=== PATIENT | male | born 1955 | race Caucasian/White ===

== ENCOUNTER 2022-07-21 05:43 | Inpatient (IN) | payer MEDICARE, SELFPAY ==
[2022-07-18 13:44] VITALS: BMI 31.5
[2022-07-21] VITALS (22 sets, daily range): BP systolic 142–203; BP diastolic 73–158; PULSE 55–73; RESP 9–18; TEMP 36.3–36.8; O2SAT 94–99; BMI 31.5
[2022-07-21] MEDS: LACTATED RINGERS 1,000 ML 84 ML IV ×3 (07:28→11:07)
--- NOTE | 2022-07-21 07:44 | PM.PREOP ---
Pre-operative Note COVID-19 COVID-19 status: Not tested Criteria for continued procedure: Expected advancement of disease process, Possibility delay results in more complex future surgery or treatment, Increased loss of function, Continuing or worsening of significant or severe pain, Deterioration of the patient's condition or overall health and Delay expected to result in less-positive ultimate med/surg outcome Interval Note History & Physical reviewed/Exam performed by Physician: Yes Changes to H&P: No
[2022-07-21] MEDS: CEFAZOLIN 2 GM/100 ML PREMIX 100 ML IV ×3 (08:15→20:30)
[2022-07-21] MEDS: BUPIVACAINE 0.25% (PF) 30 ML, EPINEPHrine 0.15 MG INJ (09:08)
--- NOTE | 2022-07-21 09:22 | SUR.OPER ---
Prone on spine table, head in foam head support, padded chest and pelvic supports, gel pad at knees, lower legs supported by pillows; nipples, genitalia and toes free of pressure, arms secured on foam padded arm boards at <90 degrees abduction. Tape over blanket at thigh secured to table.
--- NOTE | 2022-07-21 10:31 | DI.RAD.S_ITS ---
PROCEDURE: XR LUMBAR SPINE 2-3V INDICATIONS: L2-3, L3-4, L4-5 TLIF TECHNIQUE: 2 views of the lumbar spine were acquired. COMPARISON: None. FINDINGS: Fluoroscopic guidance utilized for a posterior and interbody surgical fusion of L2 through L5. No hardware complication. IMPRESSION: Fluoroscopic guidance. Dictated by: Dallas Olivas M.D. on 07/21/2022 at 13:44 Approved by: Dallas Olivas M.D. on 07/21/2022 at 13:44
[2022-07-21] MEDS: BUPIVACAINE LIPOSOME 266 MG/20 ML VIAL INJ (12:50)
--- NOTE | 2022-07-21 12:59 | P.OP_ITS ---
Operative Date/Time/Diagnoses Date of procedure: 07/21/22 Time of procedure: 07:40 Pre-op diagnosis: 1. L2-3, L3-4, L4-5 spinal stenosis with neurogenic claudication 2. Lumbar scoliosis 3. Epidural lipomatosis Post-op diagnosis: same Procedure & Clinicians Procedure: 1. L2-3, L3-4, L4-5 Postero-lateral and posterior interbody fusion 2. L2-3, L3-4, L4-5 interbody cage placement. 3. L2-3, L3-4, L4-5 decompressive laminectomy with bilateral facetecomies 4. L2-3, L3-4, L4-5 Posterior segmental instrumentation 5. [place] of bone marrow from iliac crest 6. Utilization of microsurgical technique and operating microscope' 7. Utilization of robotic assisted navigation Same procedure as scheduled: Yes Indications: Patient has been having chronic back pain and worsening lumbar radiculopathy and symptoms of neurogenic claudication. Patient failed multiple conservative management with worsening pain weakness and numbness in his lower extremity. Patient has been having difficulty performing activity of daily living. After discussing risks benefits of treatment options, patient elected proceed with surgery. Surgeon: Hero Olguin Service Secretary: Hal Noriega Click Yes if Unassisted: No Anesthesia Type: General Operative Notes Closure Type: primary Specimen(s): none sent Prosthetic devices, grafts, tissues, transplants, or devices: Globus CREO MIS screws, Rise cages Applied: catheter Estimated Blood Loss (mL): 250 Blood products transfused: none Procedure in detail: Patient was seen in the preoperative area. Risks and benefits of the surgery was discussed with the patient. Informed consent was obtained from the patient and placed in the chart. Surgical site was marked. Patient was taken to the operative room. General anesthesia was administered. Prophylactic antibiotic was given to the patient less than 30 min before the incision was made. Patient was placed into a prone position on the Omid table. Patient's back was then prepped and draped in the sterile fashion. Time-out was performed at this time. After patient was prepped and draped, patient's PSIS was palpated and marked bilaterally. Small 1 cm incision was made over the PSIS for placement of the reference probes. Two trocar was placed into the PSIS one on each side. The reference probe was attached to the trocar of the reference apparatus. At this time the C-arm imaging was used to confirm AP and lateral of L2, L3, L4, L5 vertebrae and merged the C-arm imaging using the [employer] robotic navigation system with the CT of the lumbar spine. After successful merging was completed and confirmed, skin marker was used to svitlana out the skin incision using the [employer] robotic arm. Bilateral incision was made at this time. Pre templated trajectory was used and guided using the [employer] robotic navigation system for bilateral L2 L3, L4, L5 pedicle screw placement. This was done by using the robotic arm to guide the high-speed bur to make a cortical entry point. Next a drill was placed also using the robotic arm and guided using the navigation system drilling partially through bilateral L2, L3, L4, L5 pedicles. Next L2, L3, L4, L5 pedicle screws it was pre templated and measured was placed onto the power warehouse delivery driver and inserted into the pedicles bilaterally. After all 6 screws were placed C-arm imaging was taken of both AP and lateral to confirm the placement. Excellent placement of the screws were confirmed and a matched precisely with the pre planned screw placement using the navigation system. MARs retractor was inserted using [employer] guidence. Globus MARS retractors was placed inside the incision and docked onto the L2, L3, L4 lamina. Using microsurgical technique and operating microscope, a L2, L3, L4 laminectomy and L2-3, L3-4, L4-5 facetectomy was performed using a [place] r ongeur. The laminectomy and facetectomy was performed in order to decompress patient's cauda equina as well as the nerve roots exiting at the L2-3, L3-4, L4- 5 level. Patient was found have severe lateral recess and neural foramen stenosis which was fully decompressed after the laminectomy facetectomy. Patient was also found to significant amount of epidural lipomatosis at all 3 levels in the epidural space. The lipomas were carefully resected along with hypertrophy ligamentum to further decompress the epidural space. More than 75% of the facets were removed during the process of decompression rendering L2-3, L3-4, L4-5 level grossly unstable and required a fusion procedure at the same time. The disc space at L2-3, L3-4, L4-5 was identified, and a total diskectomy was performed at L2-3, L3-4, L4-5 level. The endplates were decorticated using a rasp and shaver. The total diskectomy and decortication was performed at L2-3, L3-4, L4-5 level in order to to accomplish a L2-3, L3-4, L4-5 fusion. The local bone from the laminectomy and facetectomy was saved for local bone grafting. After the total diskectomy and decortication was completed, Trifecta bone graft material was combined with local bone that was harvested earlier. At this time, a separate skin is incision was made over the iliac crest. A Jamshidi needle was inserted into the iliac crest through a separate skin in cision. 5 cc of bone marrow aspiration was obtained through the separate skin incision using a Jamshidi needle from the iliac crest. The bone marrow aspiration was combined with local bone and the Trifecta bone grafting material. The bone grafting material was placed into the L2-3, L3-4, L4-5 interbody space along with expandable cages. One cage each was inserted into the L2-3 L3-4 L4-5 interbody space along with bone graft material. The cage was expanded to its maximum height using the torque limiting screwdriver. The disc preparation as well as the cage insertion were also performed under navigation guidance. After the cage was placed, AP and lateral C-arm imaging was taken to confirm placement of the cage and excellent position was confirmed. Globus MARS retractor was inserted and docked onto the L2-3, L3-4 L4-5 posterolateral gutter on the right side. Using the power drill, posterior- lateral decortication was performed at L2-3, L3-4 L4-5 level until bleeding cortical bone was identified. The remaining bone grafting material was placed into the L2-3, L3-4 L4-5 posterior lateral gutter he order to accomplish posterolateral fusion at the L2-3, L3-4, L4-5 level. At this time the tulips were attached to the L2, L3, L4, L5 pedicle screw shanks. After measuring the length of the rods, they were inserted into the tulips of the pedicle screws and locked in place using locking caps and torque limiting screwdriver bilaterally. Total 6 caps and 2 titanium rods was used in order to complete the posterior instrumentation construct. After all the hardware was placed, and confirmed with AP and lateral C-arm imaging, the wound was then irrigated with sterile normal saline and packed with Ray-Maegan gauze for 3 min to accomplish hemostasis. After the gauze was removed the deep fascia was closed with #1 Vicryl suture. The subcutaneous layer was closed with 2-0 Vicryl. The skin was closed with skin kori. Patient tolerated the procedure well. There were no complications. Neuro monitoring system was used to monitor patient's neurologic status throughout entire procedure. There was no disturbance of the neural monitoring signals throughout the case. Complications: none Post-operative Condition: stable Disposition: PACU Plan for aftercare: Admit to inpatient hospital
[2022-07-21] MEDS: hydrOXYzine pamoate 25 MG CAPSULE 50 MG PO (13:33)
[2022-07-21] MEDS: OXYCODONE IR 5 MG TABLET PO (13:33)
[2022-07-21] MEDS: LABETALOL 20 MG/4 ML SYRINGE 10 MG IV (14:04)
[2022-07-21] MEDS: HYDROMORPHONE 2 MG INJ IV (14:11)
[2022-07-21] MEDS: HYDRALAZINE 20 MG/ML VIAL 10 MG IV (14:30)
--- NOTE | 2022-07-21 15:09 | OT.IPNOTE ---
Attempted to see pt for OT services. Per nursing aid, pt is nauseated and in a lot of pain at this time. Will hold and continue to follow.
[2022-07-21] MEDS: HYDROMORPHONE 0.5 MG INJ IV ×3 (15:11→23:46)
[2022-07-21] MEDS: ACETAMINOPHEN 325 MG TABLET 650 MG PO (15:11)
[2022-07-21] MEDS: LACTATED RINGERS 1,000 ML 125 ML IV ×2 (15:13→23:47)
[2022-07-21] MEDS: OXYCODONE IR 10 MG TABLET PO ×2 (16:32→18:57)
--- NOTE | 2022-07-21 16:47 | PT.IIE ---
Current Diagnoses Spondylolisthesis, lumbar region (07/21/22) Spinal stenosis, lumbar region with neurogenic claudication (07/21/22) Surgery Performed Operation Date: 07/21/22 07:45 Actual Procedures p L2-3, L3-4, L4-5 TLIF w. posterior instrumentation -Robot - Hero Olguin MD Surgical History (Last Updated 07/12/22 @ 10:59 by Shantelle Hassan, RN) History of arthroscopy of both knees History of surgery Hx of umbilical hernia repair S/P epidural steroid injection Medical History (Last Updated 07/18/22 @ 14:22 by Shantelle Hassan RN) Arthritis Bipolar disorder Complex posttraumatic stress disorder Depression Dislocation of right shoulder joint DJD (degenerative joint disease) Drug abuse HLD (hyperlipidemia) HTN (hypertension) Left rotator cuff tear Major depressive disorder OCD (obsessive compulsive disorder) Osteoporosis [place] syndrome PTSD (post-traumatic stress disorder) Right rotator cuff tear Spinal stenosis Thyroid disease Physical Therapy Inpatient Evaluation/Re-Eval M1 PT/OT-IP Prior Functional Status Start: 07/21/22 16:34 Freq: NEEDED Status: Active Protocol: Document 07/21/22 16:34 ES (Rec: 07/21/22 16:47 ES [id number]) Medical Review Prior Functional Status Medical History Reviewed Yes Diet/Fluid Consistency Regular Communication Indep Mobility and Gait Indep with use of cane outdoors Activities of Daily Living and IADL's Indep Prior Functional Level (Other details) Has been sleeping in his recliner. Social History Household Members none Living Arrangements Apartment/Condo Number of Floors (Floors) One Floor Number of Stairs To Enter/Railing? 17 SHAUNA with B rails Home Environment Standard Height Toilet,Tub/ Shower Home Equipment Straight Cane,Shower Seat with Backrest Additional Social History Comment Patient stated he purchased an 18 tall inflatable mattress to sleep on. States he does not have anyone who will be helping him out at home. Has a freezer full of frozen dinners. M2 PT-IP Current Condition Start: 07/21/22 16:34 Freq: NEEDED Status: Active Protocol: Document 07/21/22 16:34 ES (Rec: 07/21/22 16:47 ES [id number]) Physical Therapy Current Condition Current Condition Evaluation Date 07/21/22 Treatment Diagnosis S/p L2-3, L3-4, L4-5 TLIF Onset Date 07/21/22 M3 PT-IP Subjective Start: 07/21/22 16:34 Freq: NEEDED Status: Active Protocol: Document 07/21/22 16:34 ES (Rec: 07/21/22 16:47 ES [id number]) Subjective Physical Therapy Visit Type Type Initial Evaluation Visit Start Time 15:55 Visit Stop Time 16:32 Total Visit Minutes 37 Physical Therapy Visit Comments Patient Comments Patient reported feeling very uncomfortable in the hospital bed. Is not used to being in a bed as he has been sleeping in his recliner for several weeks leading up to surgery due to his back pain. Would like to get up with therapy. Therapy Pain Assessment Pain When Pain Assessed At Rest Pain Present Pain Present Pain Reported Location Lower Back Intensity 9 Scale Used Numeric (0 - 10) Pain Management Techniques Apply Cold,Distraction,Re- positioning M4 PT-IP Mobility and Gait Start: 07/21/22 16:34 Freq: NEEDED Status: Active Protocol: Document 07/21/22 16:34 ES (Rec: 07/21/22 16:47 ES [id number]) PT-Bed Mobility Assessment Rolling Type of Rolling Log Rolling Level of Assist Minimal Assistance Supine to Sit Supine to Sit Minimal Assistance,Head of Bed Elevated,Bedrails Sit to Supine Sit to Supine Minimal Assistance,Head of Bed Elevated,Bedrails Scooting Scooting to Edge of Bed Minimal Assistance Scooting Up and Down in Bed Maximum Assistance PT-Transfer Assessment Sit to and From Stand Sit to and from Stand Contact Guard Assistance,Use of Upper Extremities Equipment Transfer Assistive Device Gait Belt,Front Wheeled Walker Comments Mobility Comments Patient stood at EOB with FWW x2 minutes with CGA. Attempted to take side steps toward HOB before sitting but unable to weight shift enough to take a step. PT-Balance Assessment Sitting Balance and Reactions Static Sitting Balance Ability Good Dynamic Sitting Balance Ability Good Standing Balance and Reactions Static Standing Balance Ability Good Dynamic Standing Balance Ability Fair Device Used FWW Balance Tests Single Limb Standing Unable M5 PT-IP Objective Assessments Start: 07/21/22 16:34 Freq: NEEDED Status: Active Protocol: Document 07/21/22 16:34 ES (Rec: 07/21/22 16:47 ES [id number]) Orientation Orientation/Cognition Level of Alertness Alert Orientation Name,Age,Birthday,Month,Date, Year,Day of Week,Place, Situation Language Function Ability No Deficits Noted Safety Awareness Decreased Safety Awareness Memory Description No Deficits Noted Gross Range of Motion Upper Extremity ROM Assessment Within Functional Limits Lower Extremity ROM Assessment Within Functional Limits Strength Upper Extremity Strength Assessment Within Functional Limits Lower Extremity Strength Assessment Within Functional Limits M6 PT-IP Treatment Start: 07/21/22 16:34 Freq: NEEDED Status: Active Protocol: Document 07/21/22 16:34 ES (Rec: 07/21/22 16:47 ES [id number]) Physical Therapy Treatment Education Education Provided Precautions,Weight Bearing Status,Post-Op Packet,Safety M7 PT-IP Assessment and Plan Start: 07/21/22 16:34 Freq: NEEDED Status: Active Protocol: Document 07/21/22 16:34 ES (Rec: 07/21/22 16:47 ES [id number]) PT Summary Assessment and Plan Potential Rehabilitation Potential Good Status of Condition at Evaluation Evolving Summary Impairments Pain,Balance,Bed Mobility, Transfers,Gait,Activity Tolerance Assessment Summary Patient is a 67 year old male POD #0 s/p L2-5 TLIF. He reported high levels of pain but requested to get up to EOB as the bed was uncomfortable. He required cues for log roll technique, and required min A to complete. He stood with CGA with FWW but unable to take steps due to pain wtih weight shifting on LE's. He will benefit from skilled therapy to progress his mobility in order to increase independence with functional activity while maintaining lumbar precautions. He will likely need a FWW for safety with ambulation. Goals Bed Mobility Goal Independent Transfer Goal Independent Gait Goal Independent,Cane,Front Wheel Walker Gait Distance 100 Other Goals Patient will be able to ascend /descend 17 stairs with single rail and LRAD independently. Patient will demonstrate good understanding of lumbar precautions. Days to Meet Goals 5 Frequency of Treatment Frequency Of Treatment Twice a Day Treatment Plan Physical Therapy Treatment Plan Bed Mobility Training,Transfer Training,Gait Training, Therapeutic Exercise,Post Op Education,Discharge Planning, Hot or Cold Pack Precautions Lumbar Precautions Log Roll,No Twisting,Limit Bending,Lifting Restriction of 10 lbs,Gait Belt above Incisional Area Recommendations To Nursing Amount of Assist Needed 1 Person Assist Discharge Recommendations PT Discharge Recommendations Home,Home Health Other Discharge Recommendations HHPT depending on progress Equipment Needed for Home Before FWW Discharge Transportation Needs at Discharge Private Vehicle
[2022-07-21] MEDS: hydrOXYzine pamoate 25 MG CAPSULE PO (21:09)
[2022-07-21] MEDS: ATORVASTATIN 20 MG TABLET 10 MG PO (21:10)
[2022-07-21] MEDS: TRAZODONE 50 MG TABLET 100 MG PO (21:10)
[2022-07-21] MEDS: DOCUSATE 100 MG CAPSULE PO (21:10)
[2022-07-21] MEDS: SENNOSIDES 8.6 MG TABLET 17.2 MG PO (21:10)
[2022-07-22] MEDS: ONDANSETRON 4 MG/2 ML INJ IV (00:22)
[2022-07-22] MEDS: CEFAZOLIN 2 GM/100 ML PREMIX 100 ML IV (03:07)
[2022-07-22 03:41] VITALS: BP 149/85; PULSE 73; RESP 18; TEMP 36.9; O2SAT 97
[2022-07-22] MEDS: HYDROMORPHONE 0.5 MG INJ IV ×6 (03:41→23:58)
[2022-07-22 06:10] LABS: Hematocrit 35.4 % (41-53)
[2022-07-22] MEDS: LEVOTHYROXINE 75 MCG TABLET PO (06:51)
[2022-07-22] MEDS: LEVOTHYROXINE 100 MCG TABLET PO (06:51)
[2022-07-22] MEDS: LACTATED RINGERS 1,000 ML 125 ML IV ×2 (08:15→16:03)
[2022-07-22 08:16] VITALS: BP 126/70; PULSE 65
[2022-07-22] MEDS: METOPROLOL ER 50 MG TABLET 150 MG PO (08:16)
[2022-07-22 08:17] VITALS: BP 126/70; PULSE 65
[2022-07-22] MEDS: lisinopriL 20 MG TABLET 40 MG PO (08:17)
[2022-07-22] MEDS: DOCUSATE 100 MG CAPSULE PO ×2 (08:17→20:02)
[2022-07-22] MEDS: OXYCODONE IR 10 MG TABLET PO ×5 (08:17→23:32)
[2022-07-22] MEDS: TRIAMTERENE/HCTZ 37.5/25 CAPSULE 1 CAP PO (08:17)
[2022-07-22] MEDS: AMLODIPINE 5 MG TABLET PO (08:17)
--- NOTE | 2022-07-22 08:55 | PT.IPTN ---
Current Diagnoses Spondylolisthesis, lumbar region (07/21/22) Spinal stenosis, lumbar region with neurogenic claudication (07/21/22) Surgery Performed Operation Date: 07/21/22 07:45 Actual Procedures p L2-3, L3-4, L4-5 TLIF w. posterior instrumentation -Robot - Hero Olguin MD Physical Therapy Treatment Note M2 PT-IP Current Condition Start: 07/21/22 16:34 Freq: NEEDED Status: Active Protocol: Document 07/21/22 16:34 ES (Rec: 07/21/22 16:47 ES [id number]) Physical Therapy Current Condition Current Condition Evaluation Date 07/21/22 Treatment Diagnosis S/p L2-3, L3-4, L4-5 TLIF Onset Date 07/21/22 M3 PT-IP Subjective Start: 07/21/22 16:34 Freq: NEEDED Status: Active Protocol: Document 07/22/22 09:10 TS (Rec: 07/22/22 09:40 TS [id number]) Subjective Physical Therapy Visit Type Type Treatment Note Visit Start Time 08:55 Visit Stop Time 09:10 Total Visit Minutes 15 Number of HISTOPATH TECH Visits 1 Physical Therapy Visit Comments Patient Comments Pt reports pain 5/10 at rest, increases with movement, agreeable to PT. Therapy Pain Assessment Pain When Pain Assessed At Rest Pain Present Pain Present Pain Reported Location Lower Back Intensity 5 Scale Used Numeric (0 - 10) Pain Behaviors Calling Out,Facial Grimacing, Moaning,Restlessness,Wincing Pain Management Techniques Apply Cold,Distraction,Re- positioning M4 PT-IP Mobility and Gait Start: 07/21/22 16:34 Freq: NEEDED Status: Active Protocol: Document 07/22/22 09:10 TS (Rec: 07/22/22 09:40 TS [id number]) PT-Bed Mobility Assessment Rolling Type of Rolling Log Rolling Level of Assist Minimal Assistance Supine to Sit Supine to Sit Moderate Assistance,1 Person Assistance,Head of Bed Elevated Sit to Supine Sit to Supine Moderate Assistance,Head of Bed Elevated,Bedrails Scooting Scooting to Edge of Bed Contact Guard Assistance Scooting Up and Down in Bed Maximum Assistance PT-Transfer Assessment Sit to and From Stand Sit to and from Stand Contact Guard Assistance Equipment Transfer Assistive Device Gait Belt,Front Wheeled Walker Comments Mobility Comments Supine to sit with HOB elevated ModA for uprighting trunk and LEs off EOB, pt impulsive to move due to pain. Sit to stand with FWW CGA with BUEsupport on FWW. Pt ambulated to wall ~5' and back to bed, reports increasing pain and wanting to lay bakc in bed. Sit to supine ModA for LEs pt impulsive to lay down before therapist was ready due to pain. MaxA x2 for scooting to HOB, pt was left in bed with call light nearby, RN notified. Gait Assessment Gait Gait Assistance Required: Contact Guard Assist Distance (Feet) 10 Able to Maintain Weight Bearing Status Yes During Gait Assistive Devices Assistive Device Gait Belt,Front Wheeled Walker Orthotic/Prosthetic Devices or Brace: No Gait Deviations General Gait Pattern Decreased Stride Length, Decreased Feet Clearance,Step- to Gait Factors Limiting Gait Function Factors Limiting Gait Function Decreased Activity Tolerance, Decreased Strength,Difficulty Following Directions,Limited Range of Motion,Pain,Poor Balance,Poor Safety Awareness Comments Gait Comments See mobility comments. Stair Climbing Assessment Comments Stair Climbing Comments Unable at this time. PT-Balance Assessment Sitting Balance and Reactions Static Sitting Balance Ability Good Dynamic Sitting Balance Ability Fair Standing Balance and Reactions Static Standing Balance Ability Good Dynamic Standing Balance Ability Fair Device Used FWW M5 PT-IP Objective Assessments Start: 07/21/22 16:34 Freq: NEEDED Status: Active Protocol: Document 07/21/22 16:34 ES (Rec: 07/21/22 16:47 ES [id number]) Orientation Orientation/Cognition Level of Alertness Alert Orientation Name,Age,Birthday,Month,Date, Year,Day of Week,Place, Situation Language Function Ability No Deficits Noted Safety Awareness Decreased Safety Awareness Memory Description No Deficits Noted Gross Range of Motion Upper Extremity ROM Assessment Within Functional Limits Lower Extremity ROM Assessment Within Functional Limits Strength Upper Extremity Strength Assessment Within Functional Limits Lower Extremity Strength Assessment Within Functional Limits M6 PT-IP Treatment Start: 07/21/22 16:34 Freq: NEEDED Status: Active Protocol: Document 07/22/22 09:10 TS (Rec: 07/22/22 09:40 TS [id number]) Physical Therapy Treatment Education Education Provided Precautions,Weight Bearing Status,Post-Op Packet,Safety M7 PT-IP Assessment and Plan Start: 07/21/22 16:34 Freq: NEEDED Status: Active Protocol: Document 07/22/22 09:10 TS (Rec: 07/22/22 09:40 TS [id number]) PT Summary Assessment and Plan Potential Rehabilitation Potential Good Summary Impairments Pain,Balance,Bed Mobility, Transfers,Gait,Activity Tolerance Progress Towards Goals Slow Progress due to Pain,Slow Progress due to Activity Tolerance Assessment Summary Pt is making slow progress with his mobility due to pain. He requires Max cueing for logroll Bri and and supine sit with ModA. He performed sit to stand x1 CGA with FWW with BUE support. He progressed heis ambulation to ~10' CGA with FWW, pt reports increasing pain and required to sit back to bed. Pt becomes very agitated sitting EOB and impulsively lays down due to pain. PT is recommending SNF rehab at this time to progress bed mobility, transfers, gait and activity tolerance. Pt does not have any support at home and will need to perform 17 stairs to get in his house. Goals Bed Mobility Goal Independent Transfer Goal Independent Gait Goal Independent,Cane,Front Wheel Walker Gait Distance 100 Other Goals Patient will be able to ascend /descend 17 stairs with single rail and LRAD independently. Patient will demonstrate good understanding of lumbar precautions. Days to Meet Goals 5 Frequency of Treatment Frequency Of Treatment Twice a Day Treatment Plan Physical Therapy Treatment Plan Bed Mobility Training,Transfer Training,Gait Training, Therapeutic Exercise,Post Op Education,Discharge Planning, Hot or Cold Pack Precautions Lumbar Precautions Log Roll,No Twisting,Limit Bending,Lifting Restriction of 10 lbs,Gait Belt above Incisional Area Recommendations To Nursing Amount of Assist Needed 1 Person Assist Discharge Recommendations PT Discharge Recommendations SNF Rehab Transportation Needs at Discharge Wheelchair/Cabulance
[2022-07-22 09:00] VITALS: BP 126/70; PULSE 65; RESP 17; TEMP 36.9; O2SAT 99
--- NOTE | 2022-07-22 10:38 | CM.DANOTE ---
Initial Discharge Assessment Note: Case reviewed and met with patient. Introduced self and role. Payer: Medicare and Medicaid (*notes state is inactive 6.2.23-?) PCP: Bijal Pro 67 year old male [facility] [place] admit for lumbar TLIF which he underwent yesterday. POD #1 Patient lives in [place] alone in an apartment. He walks with a cane and is independent in ADLs and drives. He has 17 steps to his second floor apartment. He states he has no one who is able to help him. His neighbor brought him to the hospital for surgery. 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 PT notes yesterday states Home with HH, however today, the HOUSING COUNSELOR Massimo states he will need SNF rehab due to only able to take 3 steps today. Patient in agreement and wants SNF Rehab. He prefers one closest to him which would be [facility]. Called and spoke with Carlene, they will have rehab beds available on Monday 07/24. (He will need 3 midnights). Faxed Referral. PLAN: When medically cleared, discharge to [facility]. J Discharge Planning/Care Management CM Discharge Assessment Start: 07/22/22 10:32 Freq: Status: Active Protocol: Document 07/22/22 10:32 (Rec: 07/22/22 10:37 [id number]) Discharge Planning Assessment Assigned Alteration Manager Flaquita Leung RN/DCP Advance Directives? No History Provided By Patient Prior Living Arrangements Apartment/Condo Household Members none Independent with ADL's Yes Is patient alert and oriented? Yes Caregiver for Another No Referrals Initiated Correction Additional Comment Therapy notes yesterday said DC plan Home with HH. However, HOUSING COUNSELOR this morning says patient will need SNF Rehab. Patient also agrees with this. He lives in [place] and wants the closest to there he states . Review Status In Process Next Review Type Continued Stay Review Pre-Anesthesia Assessment Start: 07/12/22 10:42 Freq: Status: Active Protocol: Document 07/18/22 13:44 CAB (Rec: 07/12/22 11:14 CAB [id number]) Pre-Anesthesia Assessment PAC Comment Has been off majority of meds approx 10 days due to issue with changing pharmacy, has only been taking levothyroxine daily Preferred Name [facility] Patient Information Reviewed Via Phone Assessment Assessment Completed With Patient Diagnostic Results BMP/CMP,CBC,EKG Comment Outside labs/EKG scanne Primary Care Provider Bijal Pro Seen Specialist in Last 12 Months Yes Specialist Seen Orthopedist Primary Language Swazi Pipe Crew Foreman Required No Height 177.8 cm Weight 99.79 kg Body Mass Index (BMI) 31.5 Hearing Ability Normal Visual Assist Magnifying Glass Dentition Type Full- Upper & Lower Barriers to Learning None Hx Anesthesia Reactions No Hx Family Anesthesia Reaction No Hx Malignant Hyperthermia No Hx Blood Transfusions No Anesthesia Review Requested No Geriatric Nurse Practitioner Yes: Pt does not have assist @ DC, 17 steps up to apartment alcohol intake current alcohol intake frequency a few times a week Smoking Status Former smoker how long ago did patient quit smoking 1986 Substance Use Type former substance user, marijuana Comment Advised not to smoke marijuana 24 hours prior to surgery Pain Present Pain Reported Musculoskeletal Symptoms Abnormal Gait,Back Pain, Difficulty Walking,Numbness, Radiating Pain into Limb History of Falling (Recent or History of No ) Patient is completely paralyzed or No completely immobile Prosthesis or Orthotic Device Cane Mental Status Oriented to own ability Is patient on oxygen? No Does patient have MARTINEZ/SOB Yes Hx Sleep Apnea No Currently Taking a Beta Katie No Can You Climb a Flight of Stairs Without No SOB Hx Chest Pain No Hx SOB Yes Hx Syncope or Dizziness No Anti-Coagulant Therapy No Has a Slot Floorperson No Cardiac Testing No Hx Pacemaker/ICD No Pacemaker Rep Required? No Cardiac Clearance Received Not Applicable Diet Type At Home Regular Dysphagia No Gastrointestinal Symptoms None Genitourinary Symptoms Change in Urinary Stream Chronic UTI No Bladder Pattern Frequency Urinary Catheter Present No Hx Urinary Self Catheterization No Diabetes No HgbA1C 5.8 Date 07/07/22 Hx Drug Resistant Organism No Presence of External or Internal Medical No Devices Have you had any close contact with No someone diagnosed with COVID-19? Received a COVID vaccine? Yes Received all doses? Yes Marital Status Single Lives With none Current Living Arrangements Apartment/Condo Number of Floors (Floors) One Floor Number of Stairs To Enter/Railing? 17 Support System None Does the Patient Have Assistance After No Surgery Patient Discharge Plan Description Other Comment Pt advised 2-3 day length of stay per surgeon. Pt does not have any assist Feels Safe in Current Environment Yes Been Physically Hurt or Threatened By a No Person in Current Environment Do you have thoughts of harming yourself None or others? Are you currently considering suicide? No Do you have a plan to hurt yourself or No Plan others? Do You Have Any Spiritual Beliefs That No May Affect Your HC Choices? Do You Have Any Cultural Practices That No May Affect Your HC Choices? Who Can We Speak to About Patient's Care Family, friends Identifying Code for Release of Patient Declines to issue Information Health Care Proxy/Next of Kin Richard Palaciohitesh (good friend) Health Care Proxy Emergency Contact Name Richard Robles (good friend) Emergency Contact Advance Directives? No Power of Treasury Director No PAC Instructions Durable medical equipment, Medications to take/avoid, Nasal antibiotic,No ETOH/ petroleum product on skin DOS, NPO,Pre-surgical wash,Sensory aids,Sturdy shoes/comfortable clothes,Do not bring valuables and remove jewelry
--- NOTE | 2022-07-22 10:56 | P.PN_ITS ---
Subjective Subjective Date Patient Seen: 07/22/22 Time Patient Seen: 10:56 Interval history: Pain is moderate to severe. Denies fever or chills. No nausea or vomiting. Patient does live alone. Exam Vital Signs (past 8 hours): - 07/22/22 03:41 07/22/22 08:16 07/22/22 08:17 Temperature 98.5 F Pulse Rate 73 65 65 Respiratory Rate 18 Blood Pressure 149/85 H 126/70 126/70 Pulse Oximetry 97 Oxygen Flow Rate 07/22/22 09:00 Temperature 98.4 F Pulse Rate 65 Respiratory Rate 17 Blood Pressure 126/70 Pulse Oximetry 99 Oxygen Flow Rate 0 Oxygen Delivery Method Room Air Oxygen Flow Rate 0 Narrative Exam Narrative: 67-year-old male resting comfortably in bed in no apparent distress. Motor functions intact bilateral lower extremities. Sensation grossly intact to light touch bilateral lower extremities. Const General: cooperative and comfortable Nutritional Appearance: well nourished Orientation: alert Resp Effort & Inspection: normal respiratory effort and able to speak in complete sentences Objective Labs 07/22/22 04:55 Labs: Laboratory Results - last 24 hr 07/22/22 04:55 Hgb 12.0 L Hct 35.4 L PFSH Medical History Arthritis Bipolar disorder Complex posttraumatic stress disorder Depression Dislocation of right shoulder joint DJD (degenerative joint disease) Drug abuse HLD (hyperlipidemia) HTN (hypertension) Left rotator cuff tear Major depressive disorder OCD (obsessive compulsive disorder) Osteoporosis [place] syndrome PTSD (post-traumatic stress disorder) Right rotator cuff tear Spinal stenosis Thyroid disease Surgical History History of arthroscopy of both knees History of surgery Hx of umbilical hernia repair S/P epidural steroid injection Social History household members: none Smoking Status: Former smoker alcohol intake: current Assessment & Plan Post-op Postoperative Procedures: Procedures Operation Date: 07/21/22 07:45 Actual Procedure Side Surgeon p L2-3, L3-4, L4-5 TLIF w. posterior instrumentation -Robot Hero Olguin MD Postoperative day: 1 Postoperative status: doing well and marginal pain control Postoperative plan: routine post-op care Postoperative plan narrative: Mobilize with physical therapy, limit bending, twisting, lifting Multimodal pain management Disposition, likely home versus senior care facility in 1-2 days
--- NOTE | 2022-07-22 13:50 | PT.IPTN ---
Current Diagnoses Spondylolisthesis, lumbar region (07/21/22) Spinal stenosis, lumbar region with neurogenic claudication (07/21/22) Surgery Performed Operation Date: 07/21/22 07:45 Actual Procedures p L2-3, L3-4, L4-5 TLIF w. posterior instrumentation -Robot - Hero Olguin MD Physical Therapy Treatment Note M2 PT-IP Current Condition Start: 07/21/22 16:34 Freq: NEEDED Status: Active Protocol: Document 07/21/22 16:34 ES (Rec: 07/21/22 16:47 ES [id number]) Physical Therapy Current Condition Current Condition Evaluation Date 07/21/22 Treatment Diagnosis S/p L2-3, L3-4, L4-5 TLIF Onset Date 07/21/22 M3 PT-IP Subjective Start: 07/21/22 16:34 Freq: NEEDED Status: Active Protocol: Document 07/22/22 14:07 TS (Rec: 07/22/22 14:19 TS [id number]) Subjective Physical Therapy Visit Type Type Treatment Note Visit Start Time 13:50 Visit Stop Time 14:06 Total Visit Minutes 16 Number of EQUIPMENT TECH Visits 2 Physical Therapy Visit Comments Patient Comments Pt reports pain is 4/10 at rest, agreeable to PT. Therapy Pain Assessment Pain When Pain Assessed At Rest Pain Present Pain Present Pain Reported Location Lower Back Intensity 4 Scale Used Numeric (0 - 10) Pain Behaviors Calling Out,Facial Grimacing, Moaning,Restlessness,Wincing Pain Management Techniques Apply Cold,Distraction,Re- positioning M4 PT-IP Mobility and Gait Start: 07/21/22 16:34 Freq: NEEDED Status: Active Protocol: Document 07/22/22 14:07 TS (Rec: 07/22/22 14:19 TS [id number]) PT-Bed Mobility Assessment Rolling Type of Rolling Log Rolling Level of Assist Minimal Assistance Supine to Sit Supine to Sit Minimal Assistance,1 Person Assistance,Head of Bed Elevated Sit to Supine Sit to Supine Moderate Assistance,Head of Bed Elevated,Bedrails Scooting Scooting to Edge of Bed Contact Guard Assistance Scooting Up and Down in Bed Minimal Assistance PT-Transfer Assessment Sit to and From Stand Sit to and from Stand Contact Guard Assistance Equipment Transfer Assistive Device Gait Belt,Front Wheeled Walker Orthotic/Prosthetic Devices or Brace: No Comments Mobility Comments Pt found resting in bed, agreeable to PT. Logroll Bri provided cues for RLE heel push and reaching with RUE for handrail for roll to left. Supine to sit Bri for uprighting trunk, provided cues for LEs off EOB. Sit to stand CGA with FWW, cues for ue support pushing from bed. pt ambulated ~20' in room SBA, no buckling or LOB. sit to supine ModA for LEs into bed. Pt scooted to HOB provided cues for hip lift. Pt was left in bed with call light nearby , all needs met. Gait Assessment Gait Gait Assistance Required: Standby Assistance Distance (Feet) 20 Able to Maintain Weight Bearing Status Yes During Gait Assistive Devices Assistive Device Gait Belt,Front Wheeled Walker Orthotic/Prosthetic Devices or Brace: No Gait Deviations General Gait Pattern Decreased Stride Length, Decreased Feet Clearance,Step- to Gait Factors Limiting Gait Function Factors Limiting Gait Function Decreased Activity Tolerance, Decreased Strength,Difficulty Following Directions,Limited Range of Motion,Pain,Poor Balance,Poor Safety Awareness Comments Gait Comments See mobility comments. Stair Climbing Assessment Comments Stair Climbing Comments Unable at this time. PT-Balance Assessment Sitting Balance and Reactions Static Sitting Balance Ability Good Dynamic Sitting Balance Ability Fair Standing Balance and Reactions Static Standing Balance Ability Good Dynamic Standing Balance Ability Fair Device Used FWW M5 PT-IP Objective Assessments Start: 07/21/22 16:34 Freq: NEEDED Status: Active Protocol: Document 07/21/22 16:34 ES (Rec: 07/21/22 16:47 ES [id number]) Orientation Orientation/Cognition Level of Alertness Alert Orientation Name,Age,Birthday,Month,Date, Year,Day of Week,Place, Situation Language Function Ability No Deficits Noted Safety Awareness Decreased Safety Awareness Memory Description No Deficits Noted Gross Range of Motion Upper Extremity ROM Assessment Within Functional Limits Lower Extremity ROM Assessment Within Functional Limits Strength Upper Extremity Strength Assessment Within Functional Limits Lower Extremity Strength Assessment Within Functional Limits M6 PT-IP Treatment Start: 07/21/22 16:34 Freq: NEEDED Status: Active Protocol: Document 07/22/22 14:07 TS (Rec: 07/22/22 14:19 TS [id number]) Physical Therapy Treatment Education Education Provided Precautions,Weight Bearing Status,Post-Op Packet,Safety M7 PT-IP Assessment and Plan Start: 07/21/22 16:34 Freq: NEEDED Status: Active Protocol: Document 07/22/22 14:07 TS (Rec: 07/22/22 14:19 TS [id number]) PT Summary Assessment and Plan Potential Rehabilitation Potential Good Summary Impairments Pain,Balance,Bed Mobility, Transfers,Gait,Activity Tolerance Progress Towards Goals Progressing Toward Goals Assessment Summary Pt is making some progress with his mobility this session . He continues to require Max cueing for sequencing of bed mobility and sit to stands. He progressed his ambulation distance ~20' SBA with FWW, demonstrated some increased tolerance with gait. He continues to struggle with pain control limiting his mobility. Pt was less irritated and improved with following cues provided from therapist. PT continues to recommend SNF to progress all functional mobility and activity tolerance. Goals Bed Mobility Goal Independent Transfer Goal Independent Gait Goal Independent,Cane,Front Wheel Walker Gait Distance 100 Other Goals Patient will be able to ascend /descend 17 stairs with single rail and LRAD independently. Patient will demonstrate good understanding of lumbar precautions. Days to Meet Goals 5 Frequency of Treatment Frequency Of Treatment Twice a Day Treatment Plan Physical Therapy Treatment Plan Bed Mobility Training,Transfer Training,Gait Training, Therapeutic Exercise,Post Op Education,Discharge Planning, Hot or Cold Pack Precautions Lumbar Precautions Log Roll,No Twisting,Limit Bending,Lifting Restriction of 10 lbs,Gait Belt above Incisional Area Recommendations To Nursing Amount of Assist Needed 1 Person Assist,2 Person Assist Discharge Recommendations PT Discharge Recommendations SNF Rehab Transportation Needs at Discharge Wheelchair/Cabulance
[2022-07-22 15:44] VITALS: BP 155/68; PULSE 65; RESP 17; TEMP 36.7; O2SAT 99
[2022-07-22] MEDS: ACETAMINOPHEN 325 MG TABLET 650 MG PO ×2 (16:43→23:31)
[2022-07-22] MEDS: ATORVASTATIN 20 MG TABLET 10 MG PO (19:59)
[2022-07-22] MEDS: hydrOXYzine pamoate 25 MG CAPSULE PO ×2 (20:00→23:58)
[2022-07-22] MEDS: TRAZODONE 50 MG TABLET 100 MG PO (20:01)
[2022-07-22] MEDS: SENNOSIDES 8.6 MG TABLET 17.2 MG PO (20:01)
[2022-07-22] MEDS: CALCIUM CARBONATE 500 MG TAB PO ×2 (20:16→22:22)
[2022-07-22 20:32] VITALS: BP 166/83; PULSE 70; RESP 18; TEMP 36.6; O2SAT 99
[2022-07-23] VITALS (8 sets, daily range): BP systolic 120–175; BP diastolic 68–103; PULSE 59–80; RESP 16–20; TEMP 36.2–36.8; O2SAT 97–99
[2022-07-23] MEDS: hydrOXYzine pamoate 25 MG CAPSULE PO ×3 (04:31→18:34)
[2022-07-23] MEDS: OXYCODONE IR 10 MG TABLET PO ×4 (04:31→18:34)
[2022-07-23] MEDS: ACETAMINOPHEN 325 MG TABLET 650 MG PO ×2 (04:31→12:09)
[2022-07-23] MEDS: LEVOTHYROXINE 100 MCG TABLET PO (08:10)
[2022-07-23] MEDS: lisinopriL 20 MG TABLET 40 MG PO (08:11)
[2022-07-23] MEDS: LEVOTHYROXINE 75 MCG TABLET PO (08:11)
[2022-07-23] MEDS: AMLODIPINE 5 MG TABLET PO (08:11)
[2022-07-23] MEDS: DOCUSATE 100 MG CAPSULE PO ×2 (08:11→20:48)
[2022-07-23] MEDS: TRIAMTERENE/HCTZ 37.5/25 CAPSULE 1 CAP PO (08:12)
[2022-07-23] MEDS: METOPROLOL ER 50 MG TABLET 150 MG PO (08:12)
[2022-07-23] MEDS: HYDROMORPHONE 0.5 MG INJ IV ×3 (09:21→19:26)
--- NOTE | 2022-07-23 12:21 | PT.IPTN ---
Current Diagnoses Spondylolisthesis, lumbar region (07/21/22) Spinal stenosis, lumbar region with neurogenic claudication (07/21/22) Surgery Performed Operation Date: 07/21/22 07:45 Actual Procedures p L2-3, L3-4, L4-5 TLIF w. posterior instrumentation -Robot - Hero Olguin MD Physical Therapy Treatment Note M2 PT-IP Current Condition Start: 07/21/22 16:34 Freq: NEEDED Status: Active Protocol: Document 07/21/22 16:34 ES (Rec: 07/21/22 16:47 ES [id number]) Physical Therapy Current Condition Current Condition Evaluation Date 07/21/22 Treatment Diagnosis S/p L2-3, L3-4, L4-5 TLIF Onset Date 07/21/22 M3 PT-IP Subjective Start: 07/21/22 16:34 Freq: NEEDED Status: Active Protocol: Document 07/23/22 12:08 ES (Rec: 07/23/22 12:21 ES [id number]) Subjective Physical Therapy Visit Type Type Treatment Note Visit Start Time 10:19 Visit Stop Time 10:34 Total Visit Minutes 15 Number of TANK STAVE ASSEMBLER Visits 0 Physical Therapy Visit Comments Patient Comments Patient initially declined to participate in PT, but after encouragement and education about timing therapy with pain medication, patient agreed to get up. Therapy Pain Assessment Pain When Pain Assessed During Mobility Pain Present Pain Present Pain Reported Location Lower Back Scale Used Did not provide numeric Pain Behaviors Calling Out,Facial Grimacing, Moaning,Wincing Pain Management Techniques Apply Cold,Distraction,Re- positioning,Timing of Activity with Medications M4 PT-IP Mobility and Gait Start: 07/21/22 16:34 Freq: NEEDED Status: Active Protocol: Document 07/23/22 12:08 ES (Rec: 07/23/22 12:21 ES [id number]) PT-Bed Mobility Assessment Rolling Type of Rolling Log Rolling Level of Assist Standby Assistance Supine to Sit Supine to Sit Minimal Assistance,Bedrails Scooting Scooting to Edge of Bed Standby Assistance PT-Transfer Assessment Sit to and From Stand Sit to and from Stand Contact Guard Assistance,Use of Upper Extremities Equipment Transfer Assistive Device Gait Belt,Front Wheeled Walker Transfers Transfer Destination Chair Transfer Technique Ambulation Transfer Ability Level of Assist Contact Guard Assistance Comments Mobility Comments Performed supine to sit with HOB slightly elevated. Had poor tolerance to sitting upright at EOB due to pain. Instructed patient to sit on very edge of bed to reduce hip flexion and this was more tolerable. Cued patient for hand placement and upright posture during STS to reduce back pain. Ended session up in recliner with pillows behind back and LE's partially elevated. Gait Assessment Gait Gait Assistance Required: Contact Guard Assist Distance (Feet) 60 Assistive Devices Assistive Device Gait Belt,Front Wheeled Walker Gait Deviations General Gait Pattern Decreased Stride Length, Decreased Feet Clearance Factors Limiting Gait Function Factors Limiting Gait Function Decreased Strength,Pain Comments Gait Comments Initially had slow julianna, improved with further ambulation. Required encouragement from PT and CM to ambulate further in hallway . PT-Balance Assessment Sitting Balance and Reactions Static Sitting Balance Ability Fair Dynamic Sitting Balance Ability Fair Standing Balance and Reactions Static Standing Balance Ability Good Dynamic Standing Balance Ability Fair Device Used FWW Comments Other Balance Tests/Deviations/Treatment Decreased sitting balance due : to pain and trunk weakness. Required min/mod A to come to full upright after leaning back impulsively at EOB due to back pain. M5 PT-IP Objective Assessments Start: 07/21/22 16:34 Freq: NEEDED Status: Active Protocol: Document 07/21/22 16:34 ES (Rec: 07/21/22 16:47 ES [id number]) Orientation Orientation/Cognition Level of Alertness Alert Orientation Name,Age,Birthday,Month,Date, Year,Day of Week,Place, Situation Language Function Ability No Deficits Noted Safety Awareness Decreased Safety Awareness Memory Description No Deficits Noted Gross Range of Motion Upper Extremity ROM Assessment Within Functional Limits Lower Extremity ROM Assessment Within Functional Limits Strength Upper Extremity Strength Assessment Within Functional Limits Lower Extremity Strength Assessment Within Functional Limits M6 PT-IP Treatment Start: 07/21/22 16:34 Freq: NEEDED Status: Active Protocol: Document 07/23/22 12:08 ES (Rec: 07/23/22 12:21 ES [id number]) Physical Therapy Treatment Education Education Provided Precautions,Safety M7 PT-IP Assessment and Plan Start: 07/21/22 16:34 Freq: NEEDED Status: Active Protocol: Document 07/23/22 12:08 ES (Rec: 07/23/22 12:21 ES [id number]) PT Summary Assessment and Plan Summary Impairments Pain,Balance,Bed Mobility, Transfers,Gait,Activity Tolerance Progress Towards Goals Slow Progress due to Pain,Slow Progress due to Activity Tolerance Assessment Summary Patient is making slow progress, demonstrating increased independence with bed mobility, and increased ambulation distance/tolerance. He continues to be limited due to high levels of pain. He will benefit from further therapy to progress mobility to increase his independence. Continue to recommend subacute rehab to further restore his function back to baseline. Goals Bed Mobility Goal Independent Transfer Goal Independent Gait Goal Independent,Cane,Front Wheel Walker Gait Distance 100 Other Goals Patient will be able to ascend /descend 17 stairs with single rail and LRAD independently. Patient will demonstrate good understanding of lumbar precautions. Days to Meet Goals 5 Frequency of Treatment Frequency Of Treatment Twice a Day Treatment Plan Physical Therapy Treatment Plan Bed Mobility Training,Transfer Training,Gait Training, Therapeutic Exercise,Post Op Education,Discharge Planning, Hot or Cold Pack Other Recommendations and Next Treatment Increase time OOB, progress Focus ambulation, further education on precautions and sitting posture. Precautions Lumbar Precautions Log Roll,No Twisting,Limit Bending,Lifting Restriction of 10 lbs,Gait Belt above Incisional Area Recommendations To Nursing Amount of Assist Needed 1 Person Assist Discharge Recommendations PT Discharge Recommendations SNF Rehab Transportation Needs at Discharge Wheelchair/Cabulance
--- NOTE | 2022-07-23 14:02 | CM.DPNOTE ---
Discharge Planning Note: Patient did better with PT today and now sitting up in chair eating lunch. PT recommending SNF. Referral sent yesterday to [facility] and spoke with Carlene. She states they can accept Sunday. Plan: Discharge to [facility] when medically cleared. Flaquita Leung RN/DCP
--- NOTE | 2022-07-23 14:20 | PT.IPTN ---
Current Diagnoses Spondylolisthesis, lumbar region (07/21/22) Spinal stenosis, lumbar region with neurogenic claudication (07/21/22) Surgery Performed Operation Date: 07/21/22 07:45 Actual Procedures p L2-3, L3-4, L4-5 TLIF w. posterior instrumentation -Robot - Hero Olguin MD Physical Therapy Treatment Note M2 PT-IP Current Condition Start: 07/21/22 16:34 Freq: NEEDED Status: Active Protocol: Document 07/21/22 16:34 ES (Rec: 07/21/22 16:47 ES [id number]) Physical Therapy Current Condition Current Condition Evaluation Date 07/21/22 Treatment Diagnosis S/p L2-3, L3-4, L4-5 TLIF Onset Date 07/21/22 M3 PT-IP Subjective Start: 07/21/22 16:34 Freq: NEEDED Status: Active Protocol: Document 07/23/22 13:55 KS (Rec: 07/23/22 14:57 KS [id number]) Subjective Physical Therapy Visit Type Type Treatment Note Visit Start Time 13:55 Visit Stop Time 14:20 Total Visit Minutes 25 Number of 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 Visits 1 Physical Therapy Visit Comments Patient Comments Pt agreeable to work w/ therapy, reports 2/10 pn following recent medication Therapy Pain Assessment Pain When Pain Assessed During Mobility Pain Present Pain Present Pain Reported Location Lower Back Intensity 2 Scale Used Numeric (0 - 10) Pain Behaviors Guarding Pain Management Techniques Re-positioning,Timing of Activity with Medications M4 PT-IP Mobility and Gait Start: 07/21/22 16:34 Freq: NEEDED Status: Active Protocol: Document 07/23/22 13:55 KS (Rec: 07/23/22 14:57 KS [id number]) PT-Bed Mobility Assessment Scooting Scooting to Edge of Bed Standby Assistance PT-Transfer Assessment Sit to and From Stand Sit to and from Stand Contact Guard Assistance,Use of Upper Extremities Equipment Transfer Assistive Device Gait Belt,Front Wheeled Walker Transfers Transfer Destination Chair Transfer Technique Ambulation Transfer Ability Level of Assist Contact Guard Assistance Comments Mobility Comments Pt in chair upon arrival, agreeable to ambulate. CGA and cues for sit<>Stand w/ FWW. Pt ambulated ~80 ft in hallway w/ FWW CGA. Upon return to chair he completed additional stand and marching in place. Pt left in chair w/ all needs in reach. Gait Assessment Gait Gait Assistance Required: Contact Guard Assist Distance (Feet) 80 Assistive Devices Assistive Device Gait Belt,Front Wheeled Walker Gait Deviations General Gait Pattern Decreased Stride Length, Decreased Feet Clearance Factors Limiting Gait Function Factors Limiting Gait Function Decreased Strength,Pain Comments Gait Comments See mobility PT-Balance Assessment Sitting Balance and Reactions Static Sitting Balance Ability Good Dynamic Sitting Balance Ability Good Standing Balance and Reactions Static Standing Balance Ability Good Dynamic Standing Balance Ability Fair Device Used FWW M5 PT-IP Objective Assessments Start: 07/21/22 16:34 Freq: NEEDED Status: Active Protocol: Document 07/21/22 16:34 ES (Rec: 07/21/22 16:47 ES [id number]) Orientation Orientation/Cognition Level of Alertness Alert Orientation Name,Age,Birthday,Month,Date, Year,Day of Week,Place, Situation Language Function Ability No Deficits Noted Safety Awareness Decreased Safety Awareness Memory Description No Deficits Noted Gross Range of Motion Upper Extremity ROM Assessment Within Functional Limits Lower Extremity ROM Assessment Within Functional Limits Strength Upper Extremity Strength Assessment Within Functional Limits Lower Extremity Strength Assessment Within Functional Limits M6 PT-IP Treatment Start: 07/21/22 16:34 Freq: NEEDED Status: Active Protocol: Document 07/23/22 13:55 KS (Rec: 07/23/22 14:57 KS [id number]) Physical Therapy Treatment Education Education Provided Precautions,Safety M7 PT-IP Assessment and Plan Start: 07/21/22 16:34 Freq: NEEDED Status: Active Protocol: Document 07/23/22 13:55 KS (Rec: 07/23/22 14:57 KS [id number]) PT Summary Assessment and Plan Potential Rehabilitation Potential Good Summary Impairments Pain,Balance,Bed Mobility, Transfers,Gait,Activity Tolerance Progress Towards Goals Slow Progress due to Pain,Slow Progress due to Activity Tolerance Assessment Summary Pt continues to make progress and was able to increase ambulation distance. Unable to assess bed mobility or stair training this treatment. Pt has 17 stairs to enter his home which at this time is his main barrier to d/c home. He will benefit from SNF to improve strength and functional mobility. Goals Bed Mobility Goal Independent Transfer Goal Independent Gait Goal Independent,Cane,Front Wheel Walker Gait Distance 100 Other Goals Patient will be able to ascend /descend 17 stairs with single rail and LRAD independently. Patient will demonstrate good understanding of lumbar precautions. Days to Meet Goals 5 Frequency of Treatment Frequency Of Treatment Twice a Day Treatment Plan Physical Therapy Treatment Plan Bed Mobility Training,Transfer Training,Gait Training, Therapeutic Exercise,Post Op Education,Discharge Planning, Hot or Cold Pack Other Recommendations and Next Treatment Increase time OOB, progress Focus ambulation, further education on precautions and sitting posture. Precautions Lumbar Precautions Log Roll,No Twisting,Limit Bending,Lifting Restriction of 10 lbs,Gait Belt above Incisional Area Recommendations To Nursing Amount of Assist Needed 1 Person Assist Discharge Recommendations PT Discharge Recommendations SNF Rehab Transportation Needs at Discharge Wheelchair/Cabulance
--- NOTE | 2022-07-23 14:37 | PM.PN.1 ---
Subjective Subjective Date Patient Seen: 07/23/22 Time Patient Seen: 14:40 Interval history: Patient seen postoperative day 3 from ?L2-3, L3-4, L4-5 PLIF doing well went on pain meds however he is having significant pain when off of narcotics. He has been able to walk the [place]. Seen upright eating lunch talking in a conversive manner. He has not had any significant changes to his distal extremity numbness and tingling from before surgery. He has had no postoperative issues. Exam Vital Signs (past 8 hours): - 07/23/22 08:11 07/23/22 08:12 07/23/22 08:00 Temperature 98.0 F Pulse Rate 79 79 64 Respiratory Rate 18 Blood Pressure 175/103 H 175/103 H Pulse Oximetry 98 Oxygen Flow Rate 0 07/23/22 13:31 07/23/22 13:31 Temperature 97.2 F L Pulse Rate 80 Respiratory Rate 16 Blood Pressure 140/74 140/74 Pulse Oximetry 98 Oxygen Flow Rate 0 Oxygen Delivery Method Room Air Oxygen Flow Rate 0 Narrative Exam Narrative: HEENT: Head atraumatic eyes anicteric moist mucous membranes Cardiovascular: Palpable peripheral pulses extremities are warm and well perfused Respiratory: Breathing comfortably on room air Psychiatric: Appropriate mood and affect Neuro: No acute deficits Musculoskeletal: Exam of bilateral lower extremities demonstrates 5/5 strength in tib ant, gastrocs, EHL and FHL. Sensation intact from L2 through S2. 2+ dorsalis pedis pulse with brisk capillary refill less than 2 seconds. Objective Labs 07/22/22 04:55 PFSH Medical History Arthritis Bipolar disorder Complex posttraumatic stress disorder Depression Dislocation of right shoulder joint DJD (degenerative joint disease) Drug abuse HLD (hyperlipidemia) HTN (hypertension) Left rotator cuff tear Major depressive disorder OCD (obsessive compulsive disorder) Osteoporosis [place] syndrome PTSD (post-traumatic stress disorder) Right rotator cuff tear Spinal stenosis Thyroid disease Surgical History History of arthroscopy of both knees History of surgery Hx of umbilical hernia repair S/P epidural steroid injection Social History household members: none Smoking Status: Former smoker alcohol intake: current Assessment & Plan Assessment & Plan narrative: 67-year-old male postop day 3 from above-noted procedure progressing as expected postoperative course dealing with some postoperative pain Plan: Patient will either be going home or to a long-term facility. Discharge at this time is difficult due to his stated significant pain when not on narcotics, although my encounter with him today he was quite comfortable. We will see how he does overnight and find dispo for him on Sunday.
[2022-07-23] MEDS: SENNOSIDES 8.6 MG TABLET 17.2 MG PO (20:48)
[2022-07-23] MEDS: ATORVASTATIN 20 MG TABLET 10 MG PO (20:48)
[2022-07-23] MEDS: TRAZODONE 50 MG TABLET 100 MG PO (20:48)
[2022-07-24] VITALS: BP 154/79; PULSE 75; RESP 18; TEMP 36.2; O2SAT 98
[2022-07-24] MEDS: OXYCODONE IR 10 MG TABLET PO ×3 (01:54→10:49)
[2022-07-24] MEDS: SIMETHICONE 80 MG TABLET PO (02:41)
[2022-07-24 04:00] VITALS: BP 116/68; PULSE 72; RESP 17; TEMP 36.6; O2SAT 98
[2022-07-24] MEDS: LEVOTHYROXINE 100 MCG TABLET PO (06:51)
[2022-07-24] MEDS: LEVOTHYROXINE 25 MCG TABLET 75 MCG PO (06:57)
[2022-07-24] MEDS: HYDROMORPHONE 0.5 MG INJ IV (07:48)
[2022-07-24 08:00] VITALS: BP 129/67; PULSE 78; RESP 17; TEMP 36.1; O2SAT 96
--- NOTE | 2022-07-24 08:41 | PM.DS.1 ---
History of Present Illness History of Present Illness Date Patient Seen: 07/24/22 Time Patient Seen: 08:42 Chief complaint: TLIF w/posterior instrumentation Narrative: Low back pain has been [id number]. Denies fever or chills. No nausea or vomiting. Discharge Providers Provider Date of admission: 07/21/22 05:43 Discharge Date: 07/24/22 Primary care physician: BECKY Frey Consults: 07/18/22 14:51 Consult to Roofing Foreman Routine Comment: Does not have assist @ [place]-17 steps up to apartment 07/21/22 14:58 Consult to Occupational Therapy Evaluate & Treat Comment: Physician Instructions: Evaluate and treat Consult to Physical Therapy Evaluate & Treat Comment: Physician Instructions: Evaluate and Treat Discharge provider: Hal Noriega PA-C Summary Hospital Course Discharge Diagnosis: 1. L2-3, L3-4, L4-5 spinal stenosis with neurogenic claudication 2. Lumbar scoliosis 3. Epidural lipomatosis Hospital Course: 1. L2-3, L3-4, L4-5 Postero-lateral and posterior interbody fusion 2. L2-3, L3-4, L4-5 interbody cage placement. 3. L2-3, L3-4, L4-5 decompressive laminectomy with bilateral facetecomies 4. L2-3, L3-4, L4-5 Posterior segmental instrumentation 5. [place] of bone marrow from iliac crest 6. Utilization of microsurgical technique and operating microscope' 7. Utilization of robotic assisted navigation Same procedure as scheduled: Yes Indications: Patient has been having chronic back pain and worsening lumbar radiculopathy and symptoms of neurogenic claudication. Patient failed multiple conservative management with worsening pain weakness and numbness in his lower extremity.? Patient has been having difficulty performing activity of daily living.? After discussing risks benefits of treatment options, patient elected proceed with surgery. Surgeon: Hero Olguin Senior Staff Specialized Employment: Hal Noriega Click Yes if Unassisted: No Anesthesia Type: General Operative Notes Closure Type: primary Specimen(s): none sent Prosthetic devices, grafts, tissues, transplants, or devices: Globus CREO MIS screws, Rise cages Applied: catheter Estimated Blood Loss (mL): 250 Blood products transfused: none Patient admitted to the hospital for the above-mentioned procedure. Patient consented to the same. Patient underwent lumbar fusion July 21, 2022. Patient has worked with physical therapy. Patient does live alone. Patient will be discharged to shelter facility today for further rehab prior to returning home. Limit bending, twisting, lifting. Multimodal pain management. Follow-up as scheduled in 2 weeks for recheck. Status at Discharge Cognitive/behavioral status at discharge: at baseline, oriented Functional status at discharge: uses cane/walker Overall status at discharge: patient is progressing back to baseline Exam Vital Signs (past 8 hours): - 07/24/22 04:00 Temperature 97.9 F Pulse Rate 72 Respiratory Rate 17 Blood Pressure 116/68 Pulse Oximetry 98 Oxygen Flow Rate 0 Oxygen Delivery Method Room Air Oxygen Flow Rate 0 Narrative Exam Narrative: 67-year-old male resting comfortably in bedside chair in no apparent distress. Motor functions intact bilateral lower extremities. Sensation grossly intact to light touch bilateral lower extremities. Const General: cooperative and comfortable Nutritional Appearance: well nourished Orientation: alert Resp Effort & Inspection: normal respiratory effort and able to speak in complete sentences Objective Labs 07/22/22 04:55 PFSH Medical History Arthritis Bipolar disorder Complex posttraumatic stress disorder Depression Dislocation of right shoulder joint DJD (degenerative joint disease) Drug abuse HLD (hyperlipidemia) HTN (hypertension) Left rotator cuff tear Major depressive disorder OCD (obsessive compulsive disorder) Osteoporosis [place] syndrome PTSD (post-traumatic stress disorder) Right rotator cuff tear Spinal stenosis Thyroid disease Surgical History History of arthroscopy of both knees History of surgery Hx of umbilical hernia repair S/P epidural steroid injection Social History household members: none Smoking Status: Former smoker alcohol intake: current Discharge Assessment & Plan Assessment and Plan Assessment: Patient progressing as expected status post L2-L3, L3-L4, L4-L5 fusion Plan of Treatment: Limit bending, twisting, lifting Keep wound/dressing clean and dry. Multimodal pain management Follow-up [facility] in 2 weeks Discharge to shelter facility today. Discharge Plan Discharge Plan Patient Disposition: Home Discharge orders & Medications Prescriptions: New acetaminophen 325 mg Tablet 650 mg PO Q6H PRN (Reason: Fever/Mild Pain (1-3)) Qty: 60 0RF docusate sodium 100 mg Capsule 100 mg PO BID Qty: 20 0RF hydroxyzine pamoate 25 mg Capsule 25 mg PO Q4HR PRN (Reason: Nausea And Vomiting) Qty: 20 0RF simethicone [Gas Relief 80 (simethicone)] 80 mg Tablet,Chewable 80 mg PO QID PRN (Reason: Flatulence) Qty: 10 0RF oxycodone 5 mg tablet 5 mg PO Q4H PRN (Reason: pain) Qty: 60 0RF Rx Instructions: 5-10 mg every 4 hours as needed for postop pain Continued levothyroxine 175 mcg Tablet 175 mcg PO DAILY atorvastatin 10 mg Tablet 10 mg PO DAILY metoprolol succinate 100 mg Tablet Extended Release 24 Hr 150 mg PO DAILY amlodipine 5 mg Tablet 5 mg PO DAILY lisinopril 40 mg Tablet 40 mg PO DAILY trazodone 50 mg Tablet 100 mg PO BEDTIME triamterene-hydrochlorothiazid 37.5-25 mg Capsule 1 cap PO DAILY Discontinued hydrocodone-acetaminophen 5-325 mg Tablet 1 tab PO TID Follow up/Referrals: Bijal Pro FNP-C [Primary Care Provider] - Hero Olguin MD [Physician] - (As scheduled) Diet/Activity/Treatments Diet: Diet as Tolerated Activity: Limit bending, twisting, lifting Skin/Wound/Dressing Care Report to your healthcare provider any signs of infection, such as:: chills, fever, night sweats, increased pain, unusual drainage and unusual redness Dressing: Keep dressing clean and dry Visit Report/Discharge Packet Instructions: DI for Prescription Opioid Use, DI for Transforaminal Lumbar Interbody Fusion Stand Alone Forms: Patient Portal/API, Stroke Signs & Symptoms, Surgery Discharge Discharge Data Primary Care Provider: Bijal Pro
--- NOTE | 2022-07-24 08:55 | PT.IPTN ---
Current Diagnoses Spondylolisthesis, lumbar region (07/21/22) Spinal stenosis, lumbar region with neurogenic claudication (07/21/22) Surgery Performed Operation Date: 07/21/22 07:45 Actual Procedures p L2-3, L3-4, L4-5 TLIF w. posterior instrumentation -Robot - Hero Olguin MD Physical Therapy Treatment Note M2 PT-IP Current Condition Start: 07/21/22 16:34 Freq: NEEDED Status: Active Protocol: Document 07/21/22 16:34 ES (Rec: 07/21/22 16:47 ES [id number]) Physical Therapy Current Condition Current Condition Evaluation Date 07/21/22 Treatment Diagnosis S/p L2-3, L3-4, L4-5 TLIF Onset Date 07/21/22 M3 PT-IP Subjective Start: 07/21/22 16:34 Freq: NEEDED Status: Active Protocol: Document 07/24/22 09:24 TS (Rec: 07/24/22 09:37 TS [id number]) Subjective Physical Therapy Visit Type Type Treatment Note Visit Start Time 08:55 Visit Stop Time 09:20 Total Visit Minutes 25 Number of GOPHERMAN Visits 2 Physical Therapy Visit Comments Patient Comments Pt reports pain is minimal this morning at rest, agreeable to PT. Therapy Pain Assessment Pain When Pain Assessed At Rest Pain Present Pain Present Pain Reported M4 PT-IP Mobility and Gait Start: 07/21/22 16:34 Freq: NEEDED Status: Active Protocol: Document 07/24/22 09:24 TS (Rec: 07/24/22 09:37 TS [id number]) PT-Transfer Assessment Sit to and From Stand Sit to and from Stand Minimal Assistance,Use of Upper Extremities Equipment Transfer Assistive Device Gait Belt,Front Wheeled Walker Orthotic/Prosthetic Devices or Brace: No Comments Mobility Comments Sit to stand from chair Bri with cues for BUE support pushing from arms with FWW. Pt ambulated ~300' SBA with emerging step thru gait, no buckling or LOB. He performed stairs x6 CGA with BUE handrail assist. Pt back in chair with call light nearby, all need met. Gait Assessment Gait Gait Assistance Required: Standby Assistance Distance (Feet) 300 Able to Maintain Weight Bearing Status Yes During Gait Assistive Devices Assistive Device Gait Belt,Front Wheeled Walker Orthotic/Prosthetic Devices or Brace: No Gait Deviations General Gait Pattern Decreased Stride Length, Decreased Feet Clearance Factors Limiting Gait Function Factors Limiting Gait Function Decreased Strength,Pain Comments Gait Comments See mobility Stair Climbing Assessment Evaluation Level of Assist On Stairs Contact Guard Assistance Devices Stair Climbing Assistive Devices Left Railing,Right Railing Technique/Endurance Stair Climbing Direction Ascend and Descend Stair Climbing Technique Step Over Step Number of Steps Climbed 6 Comments Stair Climbing Comments See mobility comments PT-Balance Assessment Sitting Balance and Reactions Static Sitting Balance Ability Good Dynamic Sitting Balance Ability Good Standing Balance and Reactions Static Standing Balance Ability Good Dynamic Standing Balance Ability Fair Device Used FWW M5 PT-IP Objective Assessments Start: 07/21/22 16:34 Freq: NEEDED Status: Active Protocol: Document 07/21/22 16:34 ES (Rec: 07/21/22 16:47 ES [id number]) Orientation Orientation/Cognition Level of Alertness Alert Orientation Name,Age,Birthday,Month,Date, Year,Day of Week,Place, Situation Language Function Ability No Deficits Noted Safety Awareness Decreased Safety Awareness Memory Description No Deficits Noted Gross Range of Motion Upper Extremity ROM Assessment Within Functional Limits Lower Extremity ROM Assessment Within Functional Limits Strength Upper Extremity Strength Assessment Within Functional Limits Lower Extremity Strength Assessment Within Functional Limits M6 PT-IP Treatment Start: 07/21/22 16:34 Freq: NEEDED Status: Active Protocol: Document 07/24/22 09:24 TS (Rec: 07/24/22 09:37 TS [id number]) Physical Therapy Treatment Education Education Provided Precautions,Safety M7 PT-IP Assessment and Plan Start: 07/21/22 16:34 Freq: NEEDED Status: Active Protocol: Document 07/24/22 09:24 TS (Rec: 07/24/22 09:37 TS [id number]) PT Summary Assessment and Plan Potential Rehabilitation Potential Good Summary Impairments Pain,Balance,Bed Mobility, Transfers,Gait,Activity Tolerance Progress Towards Goals Progressing Toward Goals Assessment Summary Pt is progressing well with his mobility this session. He progressed to ~300' SBA with gait in hallway, no buckling or LOB. He performed stairs x6 with BUE handrail assist with step over step. PT continues to recommend SNF for progression mobility to more independent before return home . Goals Bed Mobility Goal Independent Transfer Goal Independent Gait Goal Independent,Cane,Front Wheel Walker Gait Distance 100 Other Goals Patient will be able to ascend /descend 17 stairs with single rail and LRAD independently. Patient will demonstrate good understanding of lumbar precautions. Days to Meet Goals 5 Frequency of Treatment Frequency Of Treatment Twice a Day Treatment Plan Physical Therapy Treatment Plan Bed Mobility Training,Transfer Training,Gait Training, Therapeutic Exercise,Post Op Education,Discharge Planning, Hot or Cold Pack Other Recommendations and Next Treatment Continue to progress stairs Focus and education on safety and precautions. Precautions Lumbar Precautions Log Roll,No Twisting,Limit Bending,Lifting Restriction of 10 lbs,Gait Belt above Incisional Area Recommendations To Nursing Amount of Assist Needed 1 Person Assist Discharge Recommendations PT Discharge Recommendations SNF Rehab Transportation Needs at Discharge Wheelchair/Cabulance
[2022-07-24 08:56] VITALS: BP 129/67
[2022-07-24] MEDS: DOCUSATE 100 MG CAPSULE PO (08:56)
[2022-07-24] MEDS: lisinopriL 20 MG TABLET 40 MG PO (08:56)
[2022-07-24] MEDS: METOPROLOL ER 50 MG TABLET 150 MG PO (08:56)
[2022-07-24] MEDS: AMLODIPINE 5 MG TABLET PO (08:56)
[2022-07-24] MEDS: TRIAMTERENE/HCTZ 37.5/25 CAPSULE 1 CAP PO (08:56)
--- NOTE | 2022-07-24 10:05 | OT.IP.EVAL ---
Current Diagnoses Spondylolisthesis, lumbar region (07/21/22) Spinal stenosis, lumbar region with neurogenic claudication (07/21/22) Surgery Performed Operation Date: 07/21/22 07:45 Actual Procedures p L2-3, L3-4, L4-5 TLIF w. 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 PTSD (post-traumatic stress disorder) Right rotator cuff tear Spinal stenosis Thyroid disease Surgical History (Last Reviewed 07/24/22 @ 08:45 by Hal Noriega PA-C) History of arthroscopy of both knees History of surgery Hx of umbilical hernia repair S/P epidural steroid injection Occupational Therapy Inpatient Evaluation/Re-Eval M1 PT/OT-IP Prior Functional Status Start: 07/21/22 16:34 Freq: NEEDED Status: Active Protocol: Document 07/24/22 11:45 CGR (Rec: 07/24/22 11:56 CGR [id number]) Medical Review Prior Functional Status Medical History Reviewed Yes Diet/Fluid Consistency Regular Communication Indep Mobility and Gait Indep with use of cane outdoors Activities of Daily Living and IADL's Indep Prior Functional Level (Other details) Has been sleeping in his recliner. Social History Household Members none Living Arrangements Apartment/Condo Number of Floors (Floors) One Floor Number of Stairs To Enter/Railing? Pt lives on the second floor of an apt building with 17 stairs with B rails to get to his front door. His apt is one level inside. Home Environment Standard Height Toilet,Tub/ Shower Home Equipment Straight Cane,Shower Seat with Backrest Employment Status Retired Additional Social History Comment Pt states he typically sleeps in a recliner chair. Patient stated he purchased an 18 tall inflatable mattress to sleep on. States he does not have anyone who will be helping him out at home. Has a freezer full of frozen dinners. M2 OT-IP Current Condition Start: 07/24/22 11:44 Freq: Status: Active Protocol: Document 07/24/22 11:45 CGR (Rec: 07/24/22 11:56 CGR [id number]) Occupational Therapy Current Condition Current Condition Evaluation Date 07/24/22 Treatment Diagnosis L2-5 TLIF Diagnosis Onset Date 07/21/22 Post Operative Precautions Lumbar Precautions Log Roll,No Twisting,Limit Bending,Lifting Restriction of 10 lbs,Gait Belt above Incisional Area M3 OT- IP Subjective and Pain Start: 07/24/22 11:44 Freq: Status: Active Protocol: Document 07/24/22 11:45 CGR (Rec: 07/24/22 11:56 CGR [id number]) OT- Subjective Occupational Therapy Visit Type Type Initial Evaluation Visit Start Time 09:24 Visit Stop Time 10:05 Total Visit Minutes 41 Notes Pt very agreeable to therapy services. OT Pain Assessment Pain When Pain Assessed At Rest Pain Present Pain Present Pain Reported Location Lower Back Scale Used did not rate Management Techniques Distraction,Modification of Treatment,Re-positioning, Timing of Activity with Medications M4 OT- IP ADL's Start: 07/24/22 11:44 Freq: Status: Active Protocol: Document 07/24/22 11:45 CGR (Rec: 07/24/22 11:56 CGR [id number]) OT [id number] Comments OT Self-Feeding Comments not meal time OT ADL-Grooming General Evaluation Grooming Ability Standby Assistance Areas Needing Assistance Face Washing Comments OT Grooming Comments standing at sink OT ADL-Oral Care Comments Oral Care Comments not performed OT ADL-Dressing Comments OT Dressing Comments Educuated on use of cement production plant operator and sock aid and demonstrated use but pt declined to perform today. OT ADL-Toileting General Evaluation Toileting Ability Standby Assistance Comments OT Toileting Comments simulated seated on toielt. Also demonstrated standing to urinate with use of walker over toilet. OT ADL-Bathing Comments OT Bathing Comments not performed M5 OT- IP IADL's Start: 07/24/22 11:44 Freq: Status: Active Protocol: Document 07/24/22 11:45 CGR (Rec: 07/24/22 11:56 CGR [id number]) OT-Instrumental Activities of Daily Living Deficits IADL Deficits Identified No Deficits Home Safety Awareness Awareness of Need for Assistance at Home Good Awareness Ability to Problem Solve Emergency Able to Problem Solve Situations Medication Management Medication Management No Deficits Identified Money Management Money Management No Deficits Identified Meal Preparation Meal Preparation Comments Concerns regarding pt's ability to perform Line Worker Line Worker Comments Concerns regarding pt's ability to perform Driving Driving Comments Concerns regarding pt's ability to perform M6 OT- IP Functional Cognition Start: 07/24/22 11:44 Freq: Status: Active Protocol: Document 07/24/22 11:45 CGR (Rec: 07/24/22 11:56 CGR [id number]) Cognitive Factors Limiting Selfcare Function Cognitive Ability Level of Alertness Alert Patient Orientation Name,Age,Birthday,Month,Date, Year,Day of Week,Place, Situation Attention Span Ability Capable of Focused Attention, Capable of Sustained Attention Ability to Follow Commands Able to Follow One Step Commands with Increased Time, Able to Follow One Step Commands with Repetition OT- Vision and Hearing OT- Hearing Assessment OT- Hearing Assessment WFL OT- Vision Assessment Visual Acuity Glasses For Reading Visual Attentiveness WFL Occular Pursuits WFL Visual Convergence WFL M7 OT- IP Mobility and Balance Start: 07/24/22 11:44 Freq: Status: Active Protocol: Document 07/24/22 11:45 CGR (Rec: 07/24/22 11:56 CGR [id number]) OT-Transfer Assessment Sit to and From Stand Sit to and from Stand Contact Guard Assistance Transfers Transfer Ability Contact Guard Assistance Technique Transfer Destination Chair,Toilet Transfer Technique Stand Step Pivot Devices Transfer Assistive Devices Gait Belt,Front Wheeled Walker Comments Mobility Comments Mobility around the room and bathroom OT- Balance Assessment Sitting Balance and Reactions Static Sitting Balance Ability Good Dynamic Sitting Balance Ability Good M8 OT- IP Objective Assessments Start: 07/24/22 11:44 Freq: Status: Active Protocol: Document 07/24/22 11:45 CGR (Rec: 07/24/22 11:56 CGR [id number]) OT Gross Range of Motion Upper Extremity Range of Motion Assessment Within Functional Limits OT Strength Upper Extremity Strength Assessment Within Functional Limits Comments Strength Comments 4+/5 OT- Coordination Assessment Upper Extremity Finger to Nose Test Within Functional Limits Finger Tapping Test Within Functional Limits OT-Muscle Tone Assessment Muscle Tone WNL Yes OT Sensation Assessment Edema Edema Absent M9 OT- IP Assessment and Plan Start: 07/24/22 11:44 Freq: Status: Active Protocol: Document 07/24/22 11:45 CGR (Rec: 07/24/22 11:56 CGR [id number]) OT Summary Assessment and Plan Potential Rehabilitation Potential Good Analytic Complexity at Evaluation Moderate Summary OT Impairments Pain,Balance,Functional Mobility,Grooming,Dressing, Toileting,Bathing,Toilet Transfers,Shower Transfers, Activity Tolerance Progress Towards Goals Progressing Toward Goals Assessment Summary Pt presents as a moderate complexity evaluation s/p admit for L2-5 TLIF. Pt with better controlled pain on this date and able to ambulate to bathroom and sink. Pt indicates low endurance and requests to return to chair. Pt will benefit from SNF upon discharge as pt lives alone and has 17 stairs to get to his apt. Goals Grooming Goal Independent Dressing Goal Independent Toileting Goal Independent Bathing Goal Independent Toilet Transfer Goal Independent Shower Transfer Goal Independent Frequency of Treatment Frequency Of Treatment Once a Day Treatment Plan OT Treatment Plan ADL Training,Functional Mobility,Patient/Family Education,Discharge Planning Discharge Recommendations OT Discharge Recommendations SNF Rehab Transportation Needs at Discharge Private Vehicle
[2022-07-24] MEDS: hydrOXYzine pamoate 25 MG CAPSULE PO (10:49)
[2022-07-24 11:02] LABS: COVID19 -Nasal RAPID Negative (Negative)
[2022-07-24 11:04] VITALS: PULSE 78
--- NOTE | 2022-07-24 11:05 | CM.DPC ---
DCP Continued: SITECORE DEVELOPER reviewed EMR. SITECORE DEVELOPER spoke with Caprice at [facility], who reported that they did not accept patient over the weekend and that their team would review and let CM know if they can accept. CM placed verbal read back orders for COVID rapid test. Nursing staff verbally confirmed with CM team that they would do COVID test PAPI. Per CM team note, patient's main priority for SNF preference was closest to home in [place]. CM team sent referral information to [facility] and [facility] to review and called Riya ([facility]) and Elsie ([facility]). Both parties stated they would review and let this author know if they accept. Riya from [facility] called to let CM team know they can accept patient today and they have a wheelchair cabulance slot for 1100. Riya needed patient to sign no marijuana agreement. Let Riya know we would accept that 1100 cabulance slot. SITECORE DEVELOPER completed PASRR. SITECORE DEVELOPER gave nurse nurse report #([phone]) for [facility]. Elsie from called back. SITECORE DEVELOPER told her we went with a different d/c plan. Elsie accepted plan. CM team entered room and introduced selves and roles. Patient appeared A/Ox4 and was sitting up in his chair. Patient verbally agreed with [facility] and signed no marijuana policy agreement. SITECORE DEVELOPER faxed d/c summary, PASRR, med list, and marijuana agreement to [facility]. SITECORE DEVELOPER put d/c summary, med list, and original PASRR in d/c packet. Riya reached out via email to asked for this information plus the COVID results. SITECORE DEVELOPER sent Riya a screenshot of the negative COVID result. Placed original PASRR and copy of all records into folder to go with patient at d/c. Plan: patient will d/c today to [facility] via cabulance between 1100 and 1200. CM team will continue to follow with needs. HERMINIA Galloway
--- NOTE | 2022-07-24 12:09 | PC.NURSE ---
Discharge Note Patient A&O, VSS, RA. Patient agreeable to discharge plan. Patient premedicated prior to discharge. PIV discontinued. Patient able to dress self and pack all belongings with assistance. Report given to facility RN. Discharge packet given to facility staff. Patient taken down via wheelchair by facility staff.
== END 2022-07-24 11:45 | DRG 455 ==
PROVIDERS: Admitting Provider Orthopaedic Surgery Orthopaedic Surgery of the Spine; PCP Nurse Practitioner; Referring Provider Orthopaedic Surgery Orthopaedic Surgery of the Spine; Visit Provider Orthopaedic Surgery Orthopaedic Surgery of the Spine
PROC: 0SG10AJ Fusion of 2 or more Lumbar Vertebral Joints with Interbody Fusion Device, Posterior Approach, Anterior Column, Open Approach (ICD-10-PCS; principal; 2022-07-21 07:45)
DX: M48.062 Spinal stenosis, lumbar region with neurogenic claudication (principal); E88.2 Lipomatosis, not elsewhere classified; M41.86 Other forms of scoliosis, lumbar region; G89.18 Other acute postprocedural pain; E78.2 Mixed hyperlipidemia; I10 Essential (primary) hypertension; E07.9 Disorder of thyroid, unspecified; F32.A Depression, unspecified; Z87.891 Personal history of nicotine dependence; Z20.822 Contact with and (suspected) exposure to COVID-19
CPT/HCPCS: 36415; 72100; 76000; 85014; 85018; 87635; 97116; 97161; 97166; 97530; 97535; C9803; C1713; C9290; J0171; J0360; J0690; J1100; J1170; J2250; J2405; J2704; J3010

== ENCOUNTER 2023-04-04 08:14 | Inpatient (IN) | payer OTHER, SELFPAY ==
[2022-07-21 06:27] VITALS: BMI 31.5
[2023-04-02 12:59] VITALS: BMI 30.4
[2023-04-04] VITALS (12 sets, daily range): BP systolic 155–187; BP diastolic 74–103; PULSE 72–105; RESP 10–18; TEMP 35.3–36.6; O2SAT 94–98; BMI 30.4
--- NOTE | 2023-04-04 | DI.RAD.S_ITS ---
PROCEDURE: XR CERVICAL SPINE 2V OR 3V INDICATIONS: C4-5 ACDF TECHNIQUE: To view(s) of the cervical spine were acquired. COMPARISON: None. FINDINGS: Intraoperative fluoroscopy for ACDF at C4-5. Hardware is in place at the expected levels. IMPRESSION: Intraoperative fluoroscopy for C4-5 ACDF. Dictated by: Katty Phillips M.D. on 04/04/2023 at 17:22 Approved by: Katty Phillips M.D. on 04/04/2023 at 17:23
[2023-04-04] MEDS: LACTATED RINGERS 1,000 ML 42 ML IV (09:52)
--- NOTE | 2023-04-04 10:37 | PM.PREOP ---
Pre-operative Note Interval Note History & Physical reviewed/Exam performed by Physician: Yes Changes to H&P: No H&P completed within 30 days and has changed as indicated here:: I discussed with patient he may also have symptoms contributed by CTS to his hands. Additional work up is warranted to assess for CTS. His surgery plan has been modified to C4-5 ACDF single level surgery today. Once he is recovered from his surgery, he will require EMG for additional neuro assessment and future treatment recommendations. Patient understands and agrees with the current plan.
--- NOTE | 2023-04-04 11:27 | PM.OP.1 ---
Operative Date/Time/Diagnoses Date of procedure: 04/04/23 Time of procedure: 11:27 Pre-op diagnosis: 1. C4-5 spondylolisthesis 2. C4-5 spinal stenosis Post-op diagnosis: same Procedure & Clinicians Procedure: 1. C4-5 anterior cervical diskectomy and fusion 2. C4-5 anterior interbody cage placement 3. C4-5 anterior instrumentation with plate and screw placement in C5 and C6 vertebrae 4. Utilization of microsurgical technique and operating microscope Same procedure as scheduled: Yes Indications: Patient has been having chronic neck pain and worsening cervical radiculopathy. His current pain is most severe when he is laying down in his neck with pain affecting shoulders and arms. He been sleeping in a recliner for over 6 months due to his severe neck pain when laying down to sleep. He has a significant C4-5 spondylolisthesis with bilateral foraminal stenosis that has progressed over time correlating with his current symptoms. Patient failed multiple conservative management with worsening pain weakness and numbness in his upper extremity. Patient has been having difficulty performing activity of daily living. After discussing risks benefits of treatment options, patient elected proceed with surgery. Surgeon: Hero Olguin Hygiene Coordinator: Ayla Moya Click Yes if Unassisted: No Anesthesia Type: General Operative Notes Closure Type: primary Prosthetic devices, grafts, tissues, transplants, or devices: Globus Extend plate, Hedronc C cage Estimated Blood Loss (mL): 5 Blood products transfused: none Tourniquet time (min): 5 Procedure in detail: Patient was seen in the preoperative area. Risks and benefits of the surgery was discussed with the patient. Informed consent was obtained from the patient and placed in the chart. Surgical site was marked. Patient was taken to the operative room. General anesthesia was administered. Prophylactic antibiotic was given to the patient less than 30 min before the incision was made. Patient was placed into a supine position on a radiolucent table. Patient's shoulders were taped down to allow proper C-arm imaging. Anterior cervical area was prepped and draped in a sterile fashion. Time-out was performed at this time. Using lateral C-arm imaging, the level between C4 and C5 was identified and marked on patient's neck. A oblique incision from midline towards medial border of sternocleidomastoid muscle was made. The platysma muscle was incised in line with skin incision. Metzenbaum scissor was used to develop the plane between the medial border of sternocleidomastoid and the strap muscles medially. The carotid sheath and its contents were identified and protected behind the hand-held retractor during the entire case. The plane between the carotid sheath and strap muscles was developed with Metzenbaum scissors. Dissection was made down to the level of the anterior cervical fascia. Longus colli muscle was incised on the anterior aspect of vertebral bodies bilaterally from C4-5. Spinal needle was placed into the C4-5 disc space and confirmed with lateral C-arm imaging. Patient C4-5 anterolisthesis was clearly visible once the disc space was identified. Anterior osteophytes was resected to facilitate the exposure of the disc space. Using microsurgical technique and operative microscope, anterior cervical diskectomy was performed at C4-5 level. This was done by removing the disc material, removing the anterior and posterior osteophytes posterior longitudinal ligaments along with performing bilateral foraminotomies at the C4-5 levels. Patient was found to have severe foraminal stenosis. Patient's stenosis was fully decompressed after decompression was completed. After the diskectomy was completed, an anterior interbody cage was obtained. The cage was packed with DBM bone grafting material. One cage along with the bone grafting material was then packed into the interbody space at C4-5 along with an anterior cervical plate. The cervical plate was stabilized to the C4-5 vertebrae using screws. After confirming placement of the hardware with AP and lateral C-arm imaging, the screws were locked into the plate using the locking mechanism and torque limiting screwdriver. Patient's anterior cortex of both C4-C5 was found to be extremely hard for the screw placement likely due to sclerosis of the endplates and bone with his chronic progressive deformity. Good purchase was able to be accomplished she with all 4 screws. And the C5 vertebral body was able to be pulled anteriorly using the 2 screws at C5 level through the plate. After the hardware was placed and confirmed with AP and lateral C-arm imaging, the wound was irrigated with sterile normal saline. The platysma muscle and the subcutaneous tissue was closed with 2-0 Vicryl. The skin was closed with 4-0 Monocryl and Steri-Strips. Patient tolerated the procedure well. Patient was transferred recovery room in stable condition. There were no complications. Complications: none Post-operative Condition: stable Disposition: PACU Plan for aftercare: Admit for overnight observation
[2023-04-04] MEDS: CEFAZOLIN 2 GM/100 ML PREMIX 100 ML IV ×2 (11:36→18:33)
--- NOTE | 2023-04-04 11:40 | SUR.OPER ---
Supine on padded OR bed, head on pillow, arms padded and tucked at sides, legs uncrossed, safety belt at thigh, tape over blanket over lower legs .
[2023-04-04] MEDS: BUPIVACAINE 0.25% (PF) 10 ML, EPINEPHrine 0.15 MG INJ (11:48)
[2023-04-04] MEDS: OXYCODONE IR 5 MG TABLET PO ×4 (14:09→23:04)
[2023-04-04] MEDS: HYDROMORPHONE 0.5 MG INJ IV (14:59)
[2023-04-04] MEDS: LACTATED RINGERS 1,000 ML 125 ML IV ×2 (15:00→20:13)
--- NOTE | 2023-04-04 15:15 | PT.IIE ---
Current Diagnoses Spondylolisthesis, cervical region (04/04/23) Spinal stenosis, cervical region (04/04/23) Surgery Performed Operation Date: 04/04/23 10:15 Actual Procedures p C4-5, ACDF w. anterior instrumentation - Hero Olguin MD Surgical History (Last Updated 04/02/23 @ 13:33 by Shantelle Hassan RN) History of arthroscopy of both knees History of lumbar spinal fusion (07/21/22) History of surgery Hx of umbilical hernia repair S/P epidural steroid injection Medical History (Last Reviewed 07/24/22 @ 08:45 by Hal Noriega PA-C) Arthritis Bipolar disorder Complex posttraumatic stress disorder Depression Dislocation of right shoulder joint DJD (degenerative joint disease) Drug abuse HLD (hyperlipidemia) HTN (hypertension) Left rotator cuff tear Major depressive disorder OCD (obsessive compulsive disorder) Osteoporosis [place] syndrome PTSD (post-traumatic stress disorder) Right rotator cuff tear Spinal stenosis Thyroid disease Physical Therapy Inpatient Evaluation/Re-Eval M1 PT/OT-IP Prior Functional Status Start: 04/04/23 17:24 Freq: NEEDED Status: Active Protocol: Document 04/04/23 15:15 AB (Rec: 04/04/23 17:44 AB [id number]) Medical Review Prior Functional Status Medical History Reviewed Yes Communication able to make needs known Mobility and Gait pt stated that he was modified independent with all mobilities without AD but uses a SPC occasionally Social History Household Members none Living Arrangements Apartment/Condo Number of Stairs To Enter/Railing? pt lives in a 3rd floor apartment with access to an elevator Home Environment Standard Height Toilet,Tub/ Shower,Elevator Home Equipment Straight Cane,Grab Bars In Shower Additional Social History Comment pt plans to continue sleeping on his recliner pt stated that he can call friends to assist him if needed M2 PT-IP Current Condition Start: 04/04/23 17:24 Freq: NEEDED Status: Active Protocol: Document 04/04/23 15:15 AB (Rec: 04/04/23 17:44 AB [id number]) Physical Therapy Current Condition Current Condition Evaluation Date 04/04/23 Treatment Diagnosis s/p C4-5 ACDF; difficulty in walking Onset Date 04/04/23 M3 PT-IP Subjective Start: 04/04/23 17:24 Freq: NEEDED Status: Active Protocol: Document 04/04/23 15:15 AB (Rec: 04/04/23 17:44 AB [id number]) Subjective Physical Therapy Visit Type Type Initial Evaluation Visit Start Time 15:15 Visit Stop Time 16:15 Number of YOUTH LIAISON OFFICER Visits 0 Physical Therapy Visit Comments Patient Comments initially stated that he was not going to get up but stated that he will do it if it is the best for him Therapy Pain Assessment Pain When Pain Assessed At Rest Pain Present Pain Present Pain Reported Location Neck Scale Used moderate but pain scale not stated Pain Management Techniques Distraction,Modification of Treatment,Re-positioning M4 PT-IP Mobility and Gait Start: 04/04/23 17:24 Freq: NEEDED Status: Active Protocol: Document 04/04/23 15:15 AB (Rec: 04/04/23 17:44 AB [id number]) PT-Bed Mobility Assessment Rolling Type of Rolling Log Rolling Level of Assist Standby Assistance Supine to Sit Supine to Sit Standby Assistance,Head of Bed Elevated Sit to Supine Sit to Supine Standby Assistance,Head of Bed Elevated PT-Transfer Assessment Sit to and From Stand Sit to and from Stand Contact Guard Assistance,1 Person Assistance,Use of Upper Extremities Equipment Transfer Assistive Device None,Gait Belt Orthotic/Prosthetic Devices or Brace: Yes Comments Mobility Comments pt supine in bed and initially does not want to move but then agreed to get up and stated that he will try if it is good for him to do. obtained PLOF and home set up from pt. educated on on cervical precautions, log roll bed mobility and soft collar management. post-op handout provided to pt. BP in supine: 171/84. pt completed log roll supine to sit SBA. able to sit in EOB SBA. no c/o dizziness. completed sit to stand CGA. pt ambulated in room without AD CGA. presents with unsteady gait but without LOB. found that pt needs to be cleaned up . NAC came in to assist. pt was able to maintain standing CGA without AD while NAC assisted with hygiene care. pt sat back on EOB. assisted with brief management. able to stand again CGA and pt able to pull brief up. pt side stepped towards HOB CGA. completed log roll sit to supine SBA. positioned pt in bed. call light and table placed within reach. Gait Assessment Gait Gait Assistance Required: Contact Guard Assist Distance (Feet) 40 Able to Maintain Weight Bearing Status Yes During Gait Assistive Devices Assistive Device None,Gait Belt Orthotic/Prosthetic Devices or Brace: Yes Gait Deviations General Gait Pattern Ataxic,Decreased Stride Length ,Decreased Feet Clearance Factors Limiting Gait Function Factors Limiting Gait Function Decreased Activity Tolerance, Decreased Strength,Limited Range of Motion,Pain,Poor Balance,Poor Safety Awareness PT-Balance Assessment Sitting Balance and Reactions Static Sitting Balance Ability Normal Dynamic Sitting Balance Ability Good Standing Balance and Reactions Static Standing Balance Ability Good Dynamic Standing Balance Ability Fair Device Used without AD M5 PT-IP Objective Assessments Start: 04/04/23 17:24 Freq: NEEDED Status: Active Protocol: Document 04/04/23 15:15 AB (Rec: 04/04/23 17:44 AB [id number]) Orientation Orientation/Cognition Level of Alertness Alert Orientation Name,Place,Situation Language Function Ability No Deficits Noted Safety Awareness Decreased Safety Awareness Memory Description No Deficits Noted Gross Range of Motion Lower Extremity ROM Assessment Within Functional Limits Strength Lower Extremity Strength Assessment Within Functional Limits Muscle Tone Muscle Tone WNL Yes M6 PT-IP Treatment Start: 04/04/23 17:24 Freq: NEEDED Status: Active Protocol: Document 04/04/23 15:15 AB (Rec: 04/04/23 17:44 AB [id number]) Physical Therapy Treatment Education Education Provided Precautions,Post-Op Packet, Safety Brace Education Donning,[place],Patient M7 PT-IP Assessment and Plan Start: 04/04/23 17:24 Freq: NEEDED Status: Active Protocol: Document 04/04/23 15:15 AB (Rec: 04/04/23 17:44 AB [id number]) PT Summary Assessment and Plan Potential Rehabilitation Potential Good Status of Condition at Evaluation Evolving Summary Impairments Pain,ROM,Strength,Balance, Coordination,Sensation,Tone, Cognition,Bed Mobility, Transfers,Gait,Activity Tolerance Assessment Summary pt is a 68 y/o M s/p C4-5 ACDF POD 0. pt requiring CGA with mobility without AD and will likely progress during hospital stay. pt lives alone but can call a friend to assist if needed. Goals Bed Mobility Goal Independent Transfer Goal Independent Gait Goal Independent Gait Distance 300 Days to Meet Goals 5 Frequency of Treatment Frequency Of Treatment Twice a Day Treatment Plan Physical Therapy Treatment Plan Bed Mobility Training,Transfer Training,Gait Training, Therapeutic Exercise,Balance Retraining,Post Op Education, Discharge Planning,Hot or Cold Pack,Neuromuscular Re-ed, Coordination Retraining,Manual Therapy Precautions Cervical Spine Precautions Soft Collar for Comfort,No Heavy Lifting,Log Roll Recommendations To Nursing Amount of Assist Needed 1 Person Assist Discharge Recommendations PT Discharge Recommendations Home with Assistance Transportation Needs at Discharge Private Vehicle
[2023-04-04] MEDS: ACETAMINOPHEN 325 MG TABLET 650 MG PO (16:43)
[2023-04-04] MEDS: ATORVASTATIN 20 MG TABLET 10 MG PO (20:09)
[2023-04-04] MEDS: DOCUSATE 100 MG CAPSULE PO (20:09)
[2023-04-04] MEDS: SENNOSIDES 8.6 MG TABLET 17.2 MG PO (20:10)
[2023-04-04] MEDS: LOSARTAN 50 MG TABLET 25 MG PO (20:10)
[2023-04-05 00:15] VITALS: BP 163/98; PULSE 88; RESP 17; TEMP 35.9; O2SAT 95
--- NOTE | 2023-04-05 00:45 | PC.NURSE ---
Patient is alert and oriented. Breath sounds CTA with RA sat of 94%. HRR w/elevated BP of 155/101; Losartan given. Denied nausea. BT hypoactive and denied passing flatus as yet. Has been voiding per urinal and denied any dysuria. Is able to move himself in bed and provided SBA when out of bed. Is wearing a soft cervical collar. Dressing to neck is CDI; some bruising noted around dressing on right side. Complains of pain in left side of neck radiating down to shoulder and has been medicated with oxycodone with good results. Denied any sore throat or swallowing difficulties. Is wearing bilateral calf SCD's. Fall risk score is moderate and bed alarm is activated.
[2023-04-05] MEDS: CEFAZOLIN 2 GM/100 ML PREMIX 100 ML IV (03:32)
[2023-04-05] MEDS: LACTATED RINGERS 1,000 ML 125 ML IV (04:10)
[2023-04-05] MEDS: OXYCODONE IR 5 MG TABLET PO ×2 (04:17→10:06)
[2023-04-05] MEDS: ACETAMINOPHEN 325 MG TABLET 650 MG PO ×2 (04:18→10:06)
[2023-04-05 04:44] VITALS: BP 163/91; PULSE 83; RESP 16; TEMP 36.4; O2SAT 96
[2023-04-05] MEDS: LEVOTHYROXINE 50 MCG TABLET PO (05:29)
--- NOTE | 2023-04-05 08:00 | PM.DS.1 ---
History of Present Illness History of Present Illness Date Patient Seen: 04/05/23 Time Patient Seen: 08:00 Chief complaint: Neck pain Narrative: Neck pain is mild. No difficulty swallowing. No shortness of breath or chest pain. Patient lives alone. Discharge Providers Provider Date of admission: 04/04/23 08:14 Discharge Date: 04/05/23 Primary care physician: Justin Pope PA-C Consults: 04/02/23 13:34 Consult to Data Analyst Report Writer Routine Comment: Has friends to check on pt-no overnight assistance 04/04/23 14:33 Consult to Occupational Therapy Evaluate & Treat Comment: Physician Instructions: Evaluate and treat Consult to Physical Therapy Evaluate & Treat Comment: Physician Instructions: Evaluate and Treat 04/04/23 16:51 Consult to GOLF PROFESSIONAL - Data Analyst Report Writer Routine Comment: Discharge provider: Hal Noriega PA-C Summary Hospital Course Discharge Diagnosis: 1. C4-5 spondylolisthesis 2. C4-5 spinal stenosis Hospital Course: 1. C4-5 anterior cervical diskectomy and fusion 2. C4-5 anterior interbody cage placement 3. C4-5 anterior instrumentation with plate and screw placement in C5 and C6 vertebrae 4. Utilization of microsurgical technique and operating microscope Same procedure as scheduled: Yes Indications: Patient has been having chronic neck pain and worsening cervical radiculopathy. His current pain is most severe when he is laying down in his neck with pain affecting shoulders and arms. He been sleeping in a recliner for over 6 months due to his severe neck pain when laying down to sleep. He has a significant C4-5 spondylolisthesis with bilateral foraminal stenosis that has progressed over time correlating with his current symptoms. Patient failed multiple conservative management with worsening pain weakness and numbness in his upper extremity. Patient has been having difficulty performing activity of daily living. After discussing risks benefits of treatment options, patient elected proceed with surgery. Surgeon: Hero Olguin Family Day Care Provider: Ayla Moya Click Yes if Unassisted: No Anesthesia Type: General Operative Notes Closure Type: primary Prosthetic devices, grafts, tissues, transplants, or devices: Globus Extend plate, Hedronc C cage Estimated Blood Loss (mL): 5 Blood products transfused: none Patient admitted to the hospital for C4-C5 fusion. Patient consented to the same. Patient had surgery on April 04, 2023. Patient back in his room recovering well as in stable condition. Patient will limit bending, twisting, lifting. Multimodal pain management. Soft collar for comfort. Discharge home today after physical therapy if safe for home environment. Status at Discharge Cognitive/behavioral status at discharge: at baseline, oriented Overall status at discharge: patient is progressing back to baseline Exam Vital Signs (past 8 hours): - 04/05/23 00:15 04/05/23 04:44 Temperature 96.7 F L 97.6 F Pulse Rate 88 83 Respiratory Rate 17 16 Blood Pressure 163/98 H 163/91 H Pulse Oximetry 95 96 Oxygen Flow Rate 0 0 Oxygen Delivery Method Room Air Oxygen Flow Rate 0 Narrative Exam Narrative: 68-year-old male resting comfortably in bed in no apparent distress. Soft collar in place. Dressing clean, dry and intact. Motor functions intact bilateral upper extremities. Patient has 5/5 strength with elbow flexion and extension wrist flexion and extension inferior flexion bilaterally. Sensation grossly intact to light touch bilateral upper extremities. 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 Osteoporosis Drug abuse DJD (degenerative joint disease) Arthritis Bipolar disorder Major depressive disorder OCD (obsessive compulsive disorder) Dislocation of right shoulder joint Thyroid disease Depression HTN (hypertension) Surgical History History of lumbar spinal fusion (07/21/22) S/P epidural steroid injection History of arthroscopy of both knees Hx of umbilical hernia repair History of surgery Social History household members: none Smoking Status: Former smoker alcohol intake: current Discharge Assessment & Plan Assessment and Plan Assessment: Patient progressing as expected status post C4-C5 ACDF Plan of Treatment: Multimodal pain management Soft collar for comfort Follow up outpatient orthopedic clinic in 2 weeks Discharge home today after physical therapy if safe for home environment. Discharge Plan Discharge Plan Patient Disposition: Home Provider Discharge Comment: Follow up at [facility] in 2 weeks. Discharge orders & Medications Prescriptions: New oxycodone 5 mg Tablet 5 mg PO Q4-5H PRN (Reason: Pain, Moderate (4-6)) Qty: 42 0RF Continued losartan 50 mg Tablet 25 mg PO BEDTIME levothyroxine 50 mcg Tablet 50 mcg PO DAILY hydrochlorothiazide 25 mg Tablet 25 mg PO DAILY atorvastatin 10 mg Tablet 10 mg PO BEDTIME acetaminophen 325 mg Tablet 650 mg PO Q6H PRN (Reason: Fever/Mild Pain (1-3)) Qty: 60 0RF Follow up/Referrals: Justin Pope PA-C [Primary Care Provider] - Hero Olguin MD [Physician] - (2 weeks as scheduled) Diet/Activity/Treatments Diet: Diet as Tolerated Activity: Limit bending, twisting, lifting Other treatments: Soft collar for comfort Skin/Wound/Dressing Care Report to your healthcare provider any signs of infection, such as:: chills, fever, night sweats, unusual drainage and unusual redness Dressing: Keep dressing clean and dry. Visit Report/Discharge Packet Instructions: DI for Prescription Opioid Use, DI for Anterior Cervical Discectomy and Fusion Stand Alone Forms: Patient Portal/API, Stroke Signs & Symptoms, Surgery Discharge Discharge Data Primary Care Provider: Justin Pope
--- NOTE | 2023-04-05 08:10 | OT.IP.EVAL ---
Current Diagnoses Spondylolisthesis, cervical region (04/04/23) Spinal stenosis, cervical region (04/04/23) Surgery Performed Operation Date: 04/04/23 10:15 Actual Procedures p C4-5, ACDF w. anterior instrumentation - Hero Olguin MD Past Medical History (Last Reviewed 04/05/23 @ 08:03 by Hal Noriega PA-C) Arthritis Bipolar disorder Complex posttraumatic stress disorder Depression Dislocation of right shoulder joint DJD (degenerative joint disease) Drug abuse HLD (hyperlipidemia) HTN (hypertension) Left rotator cuff tear Major depressive disorder OCD (obsessive compulsive disorder) Osteoporosis [place] syndrome PTSD (post-traumatic stress disorder) Right rotator cuff tear Spinal stenosis Thyroid disease Surgical History (Last Reviewed 04/05/23 @ 08:03 by Hal Noriega PA-C) History of arthroscopy of both knees History of lumbar spinal fusion (07/21/22) History of surgery Hx of umbilical hernia repair S/P epidural steroid injection Occupational Therapy Inpatient Evaluation/Re-Eval M1 PT/OT-IP Prior Functional Status Start: 04/05/23 08:31 Freq: NEEDED Status: Active Protocol: Document 04/05/23 08:31 [facility] (Rec: 04/05/23 08:44 [facility] [id number]) Medical Review Prior Functional Status Medical History Reviewed Yes Communication able to make needs known Mobility and Gait pt stated that he was modified independent with all mobilities without AD but uses a SPC occasionally Activities of Daily Living and IADL's Pt states having more difficulty to grasp items 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 Social History Household Members none Living Arrangements Apartment/Condo Number of Stairs To Enter/Railing? pt lives in a 3rd floor apartment with access to an elevator Home Environment Standard Height Toilet,Tub/ Shower,Elevator Home Equipment Straight Cane,Grab Bars In Shower Additional Social History Comment pt plans to continue sleeping on his recliner pt stated that he can call friends to assist him if needed M2 OT-IP Current Condition Start: 04/05/23 08:31 Freq: Status: Active Protocol: Document 04/05/23 08:31 [facility] (Rec: 04/05/23 08:44 [facility] [id number]) Occupational Therapy Current Condition Current Condition Evaluation Date 04/05/23 Treatment Diagnosis S/P C4-5 ACDF Post Operative Precautions Cervical Spine Precautions Soft Collar for Comfort,No Heavy Lifting,Log Roll M3 OT- IP Subjective and Pain Start: 04/05/23 08:31 Freq: Status: Active Protocol: Document 04/05/23 08:31 [facility] (Rec: 04/05/23 08:44 [facility] [id number]) OT- Subjective Occupational Therapy Visit Type Type Initial Evaluation Visit Start Time 09:10 Visit Stop Time 09:30 Occupational Therapy Visit Comments Patient Comments Pt eating breakfast and agreed to work with OT. Patient/Caregiver Goals TO go home. OT Pain Assessment Pain When Pain Assessed At Rest Pain Present Pain Present Pain Reported Location Neck Intensity 2 Scale Used Numeric (0 - 10) M4 OT- IP ADL's Start: 04/05/23 08:31 Freq: Status: Active Protocol: Document 04/05/23 08:31 [facility] (Rec: 04/05/23 08:44 [facility] [id number]) OT TTV-Lrcb-Oybrzer General Evaluation Self-Feeding Ability Independent Comments OT Self-Feeding Comments Educated of chewing foods thoroughly and sit upright. OT ADL-Grooming Comments OT Grooming Comments Pt states to do later. OT ADL-Oral Care Comments Oral Care Comments Educated best for pt to spit into a cup or hinge at his hips in order to spit into the sink to best follow his cervical precautions. OT ADL-Dressing Comments OT Dressing Comments Pt insistent that he will be fine. Educated pt to be mindful of his head positioning when dressing . Suggested use of LB dressing equipment if needed. OT ADL-Toileting Comments OT Toileting Comments Educated pt to be mindful of his head positioning and that standing to wipe may be easier in addition to having a bidet. OT ADL-Bathing Comments OT Bathing Comments Pt has bars in the shower and aware best to shower from the chest down. Educated the soft collar can be put in the dryer if gotten wet. M5 OT- IP IADL's Start: 04/05/23 08:31 Freq: Status: Active Protocol: Document 04/05/23 08:31 [facility] (Rec: 04/05/23 08:44 [facility] [id number]) OT-Instrumental Activities of Daily Living Home Safety Awareness Awareness of Need for Assistance at Home Good Awareness Ability to Problem Solve Emergency Able to Problem Solve Situations Medication Management Medication Management No Deficits Identified Money Management Money Management No Deficits Identified Meal Preparation Meal Preparation Comments Pt has friends to assist if needed. Compressor Operator Adjuster Compressor Operator Adjuster Comments Pt has friends to assist if needed. M6 OT- IP Functional Cognition Start: 04/05/23 08:31 Freq: Status: Active Protocol: Document 04/05/23 08:31 [facility] (Rec: 04/05/23 08:44 [facility] [id number]) Cognitive Factors Limiting Selfcare Function Cognitive Ability Level of Alertness Alert Patient Orientation Name,Age,Birthday,Month,Date, Year,Day of Week,Place, Situation Attention Span Ability Capable of Focused Attention, Capable of Sustained Attention Ability to Follow Commands Able to Follow One Step Commands Cognitive Comments Cognitive Assessment Comments Pt is intact and insistent that he will be fine. OT- Vision and Hearing OT- Hearing Assessment OT- Hearing Assessment WFL M7 OT- IP Mobility and Balance Start: 04/05/23 08:31 Freq: Status: Active Protocol: Document 04/05/23 08:31 [facility] (Rec: 04/05/23 08:44 [facility] [id number]) OT-Transfer Assessment Comments Mobility Comments Pt has been independently getting up in the room on his own. M8 OT- IP Objective Assessments Start: 04/05/23 08:31 Freq: Status: Active Protocol: Document 04/05/23 08:31 [facility] (Rec: 04/05/23 08:44 [facility] [id number]) OT Gross Range of Motion Upper Extremity Range of Motion Assessment Bilaterally Impaired OT Strength Upper Extremity Strength Assessment Bilaterally Impaired Comments Strength Comments Bilateral hands sway right hand greater than left side. OT Sensation Assessment Comments Summary Comments Pt still complaining of numbness in his arms. Pt states that surgeon is planning on pt to have carpal tunnel sx in the near future. M9 OT- IP Assessment and Plan Start: 04/05/23 08:31 Freq: Status: Active Protocol: Document 04/05/23 08:31 [facility] (Rec: 04/05/23 08:44 [facility] [id number]) OT Summary Assessment and Plan Potential Rehabilitation Potential Good Analytic Complexity at Evaluation Low Summary OT Impairments Pain,Strength,Coordination, Bathing,Shower Transfers Progress Towards Goals Progressing Toward Goals Assessment Summary Pt low complexity and main barriers are pt still has numbness and weakness in his arms. Pt to go home when medically stable and has friend to assist him when able . Suggested pt may benefit from seeing a hand therapist for BUE weakness needs. Goals Bathing Goal Independent Shower Transfer Goal Independent Days to Meet Goals 1 Frequency of Treatment Frequency Of Treatment Once a Day Treatment Plan OT Treatment Plan ADL Training,Functional Mobility,Patient/Family Education,Discharge Planning Discharge Recommendations OT Discharge Recommendations Home with Assistance Other Discharge Recommendations Pt would benefit from hand therapy. Transportation Needs at Discharge Private Vehicle
[2023-04-05] MEDS: MAGNESIUM HYDROXIDE 30 ML UDC PO (08:12)
[2023-04-05] MEDS: hydroCHLOROthiazide 25 MG TABLET PO (08:12)
[2023-04-05] MEDS: polyethylene glycoL 3350 17 GM POWD.PACK PO (08:12)
[2023-04-05] MEDS: DOCUSATE 100 MG CAPSULE PO (08:12)
[2023-04-05 08:50] VITALS: BP 178/85; PULSE 89; RESP 16; TEMP 36.4; O2SAT 97
--- NOTE | 2023-04-05 08:52 | PT.IPTN ---
Current Diagnoses Spondylolisthesis, cervical region (04/04/23) Spinal stenosis, cervical region (04/04/23) Surgery Performed Operation Date: 04/04/23 10:15 Actual Procedures p C4-5, ACDF w. anterior instrumentation - Hero Olguin MD Physical Therapy Treatment Note M2 PT-IP Current Condition Start: 04/04/23 17:24 Freq: NEEDED Status: Active Protocol: Document 04/04/23 15:15 AB (Rec: 04/04/23 17:44 AB [id number]) Physical Therapy Current Condition Current Condition Evaluation Date 04/04/23 Treatment Diagnosis s/p C4-5 ACDF; difficulty in walking Onset Date 04/04/23 M3 PT-IP Subjective Start: 04/04/23 17:24 Freq: NEEDED Status: Active Protocol: Document 04/05/23 09:15 TS (Rec: 04/05/23 09:21 TS [id number]) Subjective Physical Therapy Visit Type Type Treatment Note Visit Start Time 08:52 Visit Stop Time 09:05 Number of ORTHOPEDIC SHOE FITTER Visits 1 Physical Therapy Visit Comments Patient Comments Pt found resting in bed, reports pain is controlled at this time, is agreeable to PT. Therapy Pain Assessment Pain When Pain Assessed At Rest Pain Present Pain Present Pain Reported M4 PT-IP Mobility and Gait Start: 04/04/23 17:24 Freq: NEEDED Status: Active Protocol: Document 04/05/23 09:15 TS (Rec: 04/05/23 09:21 TS [id number]) PT-Bed Mobility Assessment Rolling Type of Rolling Log Rolling Level of Assist Standby Assistance Supine to Sit Supine to Sit Standby Assistance,Head of Bed Elevated Sit to Supine Sit to Supine Standby Assistance,Head of Bed Elevated Scooting Scooting to Edge of Bed Standby Assistance PT-Transfer Assessment Sit to and From Stand Sit to and from Stand Standby Assistance Equipment Transfer Assistive Device None,Gait Belt Orthotic/Prosthetic Devices or Brace: Yes Comments Mobility Comments Pt performed Logroll SBA with HOB elevated, demonstrates good awareness of spinal precautions. He stood with no AD and BUE support pushing from arms of chair. He ambulated ~300'SBA with no AD, has some SOB, cues provided for PLB. pt ambulated back to room, left in bed, all needs met. Gait Assessment Gait Gait Assistance Required: Standby Assistance Distance (Feet) 300 Able to Maintain Weight Bearing Status Yes During Gait Assistive Devices Assistive Device None,Gait Belt Orthotic/Prosthetic Devices or Brace: Yes Gait Deviations General Gait Pattern Ataxic,Decreased Stride Length ,Decreased Feet Clearance Factors Limiting Gait Function Factors Limiting Gait Function Decreased Activity Tolerance, Decreased Strength,Limited Range of Motion,Pain,Poor Balance,Poor Safety Awareness Comments Gait Comments See mobility comments PT-Balance Assessment Sitting Balance and Reactions Static Sitting Balance Ability Normal Dynamic Sitting Balance Ability Normal Standing Balance and Reactions Static Standing Balance Ability Good Dynamic Standing Balance Ability Fair Device Used without AD M5 PT-IP Objective Assessments Start: 04/04/23 17:24 Freq: NEEDED Status: Active Protocol: Document 04/04/23 15:15 AB (Rec: 04/04/23 17:44 AB [id number]) Orientation Orientation/Cognition Level of Alertness Alert Orientation Name,Place,Situation Language Function Ability No Deficits Noted Safety Awareness Decreased Safety Awareness Memory Description No Deficits Noted Gross Range of Motion Lower Extremity ROM Assessment Within Functional Limits Strength Lower Extremity Strength Assessment Within Functional Limits Muscle Tone Muscle Tone WNL Yes M6 PT-IP Treatment Start: 04/04/23 17:24 Freq: NEEDED Status: Active Protocol: Document 04/05/23 09:15 TS (Rec: 04/05/23 09:21 TS [id number]) Physical Therapy Treatment Education Education Provided Precautions,Post-Op Packet, Safety M7 PT-IP Assessment and Plan Start: 04/04/23 17:24 Freq: NEEDED Status: Active Protocol: Document 04/05/23 09:15 TS (Rec: 04/05/23 09:21 TS [id number]) PT Summary Assessment and Plan Potential Rehabilitation Potential Good Summary Impairments Pain,ROM,Strength,Balance, Coordination,Sensation,Tone, Cognition,Bed Mobility, Transfers,Gait,Activity Tolerance Progress Towards Goals Progressing Toward Goals Assessment Summary Cesar is doing well with his mobility this session. He demonstrates good awareness of his spinal precautions during mobility. He ambulated ~300' SBA with no AD, has some SOB. PT is recommending pt return home with assist . Goals Bed Mobility Goal Independent Transfer Goal Independent Gait Goal Independent Gait Distance 300 Days to Meet Goals 5 Frequency of Treatment Frequency Of Treatment Twice a Day Treatment Plan Physical Therapy Treatment Plan Bed Mobility Training,Transfer Training,Gait Training, Therapeutic Exercise,Balance Retraining,Post Op Education, Discharge Planning,Hot or Cold Pack,Neuromuscular Re-ed, Coordination Retraining,Manual Therapy Precautions Cervical Spine Precautions Soft Collar for Comfort,No Heavy Lifting,Log Roll Recommendations To Nursing Amount of Assist Needed Standby Assistance Discharge Recommendations PT Discharge Recommendations Home with Assistance Transportation Needs at Discharge Private Vehicle
--- NOTE | 2023-04-05 13:25 | CM.DANOTE ---
Discharge Planning/Care Management CM Discharge Assessment Start: 04/05/23 13:18 Freq: Status: Discharge Protocol: Document 04/05/23 13:18 SHELBY (Rec: 04/05/23 13:25 [facility] [id number]) Discharge Planning Assessment Assigned Cad Cam Programmer HERMINIA Gudino DPTORIE/Assigned Designee Name Richard Robles, friend Contact Information [phone] Advance Directives? No History Provided By Patient Prior Living Arrangements Apartment/Condo Household Members none Type of transporation used prior to Drives own vehicle admit Independent with ADL's Yes Is patient alert and oriented? Yes Barriers to Discharge No Comment Patient discharging home today , POD1 from cervical spine surgery. Patient will dsicharge home alone, says he has friends that can assist as needed. Friend to transport home. Therapy has cleared patient for this plan. Discharge Plan Home Transportation Arrangement Friend Referrals Initiated None needed
== END 2023-04-05 12:28 | disposition home or self-care (01) | DRG 473 ==
PROVIDERS: Admitting Provider Orthopaedic Surgery Orthopaedic Surgery of the Spine; PCP Physician Assistant; Referring Provider Orthopaedic Surgery Orthopaedic Surgery of the Spine; Visit Provider Orthopaedic Surgery Orthopaedic Surgery of the Spine
PROC: 0RG10A0 Fusion of Cervical Vertebral Joint with Interbody Fusion Device, Anterior Approach, Anterior Column, Open Approach (ICD-10-PCS; principal; 2023-04-04 10:15)
DX: M43.12 Spondylolisthesis, cervical region (principal); M48.02 Spinal stenosis, cervical region; M54.12 Radiculopathy, cervical region; I10 Essential (primary) hypertension; E07.9 Disorder of thyroid, unspecified; E78.5 Hyperlipidemia, unspecified; Z87.891 Personal history of nicotine dependence
CPT/HCPCS: 72040; 76000; 97116; 97162; 97165; 97530; 97535; C1713; J0171; J0330; J0690; J1100; J1170; J2250; J2405; J2704; J3010